=== PATIENT | female | born 1935 | race Caucasian/White ===

== ENCOUNTER 2016-10-24 09:57 | Emergency (ER) | payer MEDICARE, BC | END 2016-10-24 12:10 | disposition home or self-care (01) | LOC: D.ER 09:57 | DX: M25.551 Pain in right hip (principal); M54.5 Low back pain; Z91.81 History of falling; H40.9 Unspecified glaucoma; F41.9 Anxiety disorder, unspecified; I10 Essential (primary) hypertension ==

== ENCOUNTER → 2018-10-05 12:03 | Outpatient (CLI) | payer MEDICARE, BC | END | disposition home or self-care (01) | LOC: D.MRI 12:03 | DX: R42 Dizziness and giddiness (principal) ==

== ENCOUNTER 2018-12-23 12:51 | Outpatient (CLI) | payer MEDICARE, BC ==
[~2018-12-23] VITALS: Ht 167.6 cm; Wt 58.0 kg
--- NOTE | ~2018-12-23 | HEMODYNAMI ---
PATIENT:SULEMA CONRAD MEDICAL RECORD: [id number] : 35 LOCATION:[facility].212 ADMISSION DATE: 12/23/18 Generatedon:12/24/20188:55 Patient name: SULEMA CONRAD Patient #: [id number] SSN: : 1935 Date of study: 12/24/2018 Page: Of Hemodynamic Procedure Report Patient Data Patient Demographics Procedure consent was obtained First Name: SULEMA Gender: Female Last Name: [place] : 1935 Patient #: [id number] Age: 83 year(s) Race: Unknown Additional ID: [id number] Contact details [address]: [address] [place] [address] State: [place] City: [place] Zip code: [address] Admission Admission Data Admission Date: 12/23/2018 Admission Time: 12:51 Room #: [facility] Procedure Procedure Types Cath Procedure Diagnostic Procedure LHC Coronaries only Cardioversion External Procedure Description Procedure Date Procedure Date: 12/24/2018 Procedure Start Time: 8:36 Procedure End Time: 8:48 Procedure Staff Name Function Marcelo Forbes MD Performing Physician Grady Duran RT Monitor Delicia Mooney RT Scrub Andi Ramsey RN Nurse Procedure Data Cath Procedure Fluoroscopy Diagnostic fluoroscopy Total fluoroscopy Time: 2.1 time: 2.1 min min Diagnostic fluoroscopy Total fluoroscopy dose: 253 dose: 253 mGy mGy Contrast Material Contrast Material Type Amount (ml) Isovue 300 23 Entry Location Entry Primary Successful Side Size Upsize Upsize Entry Closure Succes sful Closure Location (Fr) 1 (Fr) 2 (Fr) Remarks Device Remarks Femoral Right 5 Fr Exoseal artery Estimated blood loss: 10 ml Diagnostic catheters Device Type Used For End Catheter Placement MULTIPACK Pigtail 5 Fr Procedure catheter MULTIPACK JL 4.0 5Fr Procedure catheter DIAGNOSTIC JL 6 5Fr Procedure catheter ([id number]) DIAGNOSTIC AR2 MOD 5 Fr Procedure catheter ([id number]) Procedure Complications No complications Procedure Medications Medication Administration Route Dosage Oxygen etCO2 Nasal cannula 2 l/min Heparin Flush Bag added to field 2 bags (1000units/500ml NS) 0.9% NaCl I.V. 100 ml/hr Lidocaine 2% added to field 20 Fentanyl I.V. 50 mcg Versed I.V. 1 mg Fentanyl I.V. 50 mcg Versed I.V. 1 mg Hemodynamics Rest Heart Rate: 82 (bpm) Snapshots Pre Cath Intra NCS Post Cath Vital Signs Time Heart Resp SPO2 etCO2 NIBP Rhythm Pain Sedation Rate (ipm) (%) (mmHg) (mmHg) Status Level (bpm) 8:31:13 83 18 98 17.2 118/61(93) NSR 0 (11) 10(A) , No pain 8:35:18 85 16 100 10.4 113/58(76) NSR 0 (11) 10(A) , No pain 8:39:20 90 17 97 0 98/62(80) NSR 0 (11) 9(A) , No pain 8:43:18 78 17 97 0 115/64(95) NSR 0 (11) 9(A) , No pain 8:48:17 72 16 86 0 128/60(98) NSR 0 (11) 9(A) , No pain Medications Time Medication Route Dose Verified Delivered Reason Notes Effe ctiveness by by 8:32:57 Oxygen etCO2 2 Marcelo Andi Per Nasal l/min Andrei Ramsey RN physician cannula 8:33:05 Heparin Flush added 2 Marcelo Andi used for Bag to bags Andrei Ramsey RN procedure (1000units/500ml field NS) 8:33:13 0.9% NaCl I.V. 100 Marcelo Andi Per ml/hr Andrei Ramsey RN physician 8:33:21 Lidocaine 2% added 20ml Marcelo Andi for local to vial Andrei Ramsey RN anesthetic field 8:35:18 Fentanyl I.V. 50 Marcelo Escamilla for mcg Andrei Ramsey RN sedation 8:35:24 Versed I.V. 1 mg Marcelo Escamilla for Andrei Ramsey RN sedation 8:39:42 Fentanyl I.V. 50 Marcelo Arredondoy for mcg Andrei Ramsey RN sedation 8:39:46 Versed I.V. 1 mg Marcelo Escamilla for Andrei Ramsey RN sedation Procedure Log Time Note 7:46:44 Signed procedure consent form obtained from patient. 7:46:45 Diagnostic Cath status Elective 7:46:46 Time tracking: Regular hours (M-F 7:00 - 5:00) 7:46:49 Plan of Care:Hemodynamics will remain stable., Cardiac rhythm will remain stable., Comfort level will be maintained., Respiratory function will remain adequate., Patient/ family verbilizes understanding of procedure., Procedure tolerated without complication., Recovers from procedure without complications.. 8:07:09 Grady SHAHID(R) sent for patient. Start room use. 8:10:26 Procedure type changed to Cath procedure, Diagnostic procedure, LHC, Coronaries only, Cardioversion External 8:17:05 Patient received from Med II to CCL 2 Alert and oriented. Tansferred to table in Supine position. 8:17:06 Warm blankets applied, and shilpa hugger turned on for patient comfort. 8:17:07 Correct patient and procedure confirmed by team. 8:17:08 ECG and BP/O2 sat monitors applied to patient. 8:30:02 Vital chart was started 8:31:18 Baseline sample Acquired. 8:31:35 Rhythm: atrial fibrillation 8:32:10 Full Disclosure recording started 8:32:19 H&P Date Dictated: 12/23/2018 Within 30 days and on chart., H&P Addendum completed by physician on day of procedure. (MUST COMPLETE FOR ALL OUTPATIENTS). 8:32:20 Pre-procedure instructions explained to patient. 8:32:21 Pre-op teaching completed and patient verbalized understanding. 8:32:22 Family in patients room. 8:32:24 Patient NPO since Midnight. 8:32:25 Is the patient allergic to Iodine/contrast media? No. 8:32:27 Is patient on blood thinner?Yes 8:32:33 ACC The patient was administered the following blood thiners within the last 24 hours: ACCPlavix 8:32:52 Patient diabetic? No. 8:32:55 Previous problem with sedation/anesthesia? No ? 8:32:56 Snore? No 8:32:57 Oxygen 2 l/min etCO2 Nasal cannula was administered by Andi Ramsey RN; Per physician; 8:32:57 Sleep apnea? No 8:32:58 Deviated septum? No 8:32:58 Opens mouth fully? Yes 8:32:59 Sticks out tongue? Yes 8:33:00 Airway obstruction? No ? 8:33:03 Dentures? Yes out 8:33:05 Heparin Flush Bag (1000units/500ml NS) 2 bags added to field was administered by Andi Ramsey RN; used for procedure; 8:33:06 Pre procedure: right dorsailis pedis pulse 1+ Palpable, but thready & weak; easily obliterated 8:33:13 0.9% NaCl 100 ml/hr I.V. was administered by Andi Ramsey RN; Per physician; 8:33:18 RADIAL TOO SMALL 8:33:21 Lidocaine 2% 20ml vial added to field was administered by Andi Ramsey RN; for local anesthetic; 8:33:21 Patient pain scale 0/10 ?. 8:33:24 IV patent on arrival in right forearm with 0.9% NaCl at KVO. 8:33:26 Lab results completed and on chart. 8:33:29 Right groin area was prepped with chlora-prep and draped in sterile fashion 8:33:30 Alarms reviewed by R. N. 8:33:31 Sharps counted by scrub and verified by R.N. 8:33:36 Use device set Femoral Dx 8:33:44 Tegaderm 4 x 4 ([id number]) opened to sterile field. 8:33:46 ACIST Hand Control (25456) opened to sterile field. 8:33:46 ACIST Manifold (92855) opened to sterile field. 8:33:47 ACIST Syringe (00672) opened to sterile field. 8:33:48 Bag Decanter (2002S) opened to sterile field. 8:33:48 Medline Cath Pack ([id number]) opened to sterile field. 8:33:49 DIAGNOSTIC WIRE .035 260cm J wire (208684) opened to sterile field. 8:33:50 DIAGNOSTIC Multipack 5Fr catheter set ([id number]) opened to sterile field. 8:33:51 SHEATH 5FR Rittman (JIN157) opened to sterile field. 8:33:52 Quick Combo opened to sterile field. 8:33:56 Quick combo pads placed on patients chest and back. 8:34:00 --------ALL STOP TIME OUT------ 8:34:01 Final Timeout: patient, procedure, and site verified with staff and physician. All members of the team are in agreement. 8:34:02 Right groin site verified by team. 8:34:05 Maximum allowable Isovue 300 dose 300ml. Physician notified. (300ml for normal creatinines. For patients with creatinine of 1.7 or higher multiply weight(kg) x 5 divided by creatinine.) 8:34:13 Fire Safety Assessment: A--An alcohol-based skin anteseptic being used preoperatively., C--Open oxygen or nitrous oxide is being used., D--An ESU, laser, or fiber-optic light is being used. 8:34:16 Physical assessment completed. ASA score P 2 - A patient with mild systemic disease as per Marcelo Forbes MD. 8:34:19 Sedation plan: IV Moderate Sedation Medication:Versed, Fentanyl 8:35:18 Fentanyl 50 mcg I.V. was administered by Andi Ramsey RN; for sedation; 8:35:24 Versed 1 mg I.V. was administered by Andi Ramsey RN; for sedation; 8:36:54 Procedure started. 8:36:57 Local anesthetic to right femoral artery with Lidocaine 2% by Marcelo Forbes MD.INITIAL ACCESS ONLY 8:37:21 A 5 Fr sheath was inserted into the Right Femoral artery 8:38:28 Zero performed for pressure channel P1 8:38:31 Zero performed for pressure channel P1 8:38:33 Zero performed for pressure channel P1 8:38:49 A MULTIPACK Pigtail 5 Fr catheter was advanced over the wire and used for Procedure. 8:39:42 Fentanyl 50 mcg I.V. was administered by Andi Ramsey RN; for sedation; 8:39:46 Versed 1 mg I.V. was administered by Andi Ramsey RN; for sedation; 8:39:54 Unable to cross valve. 8:40:01 Catheter removed. 8:40:11 A MULTIPACK JL 4.0 5Fr catheter was advanced over the wire and used for Procedure. 8:40:45 Catheter removed. unable to cannulate vessel. 8:40:57 A DIAGNOSTIC JL 6 5Fr catheter ([id number]) was advanced over the wire and used for Procedure. 8:42:03 LCA angiography performed. 8:42:12 Catheter removed. 8:42:49 A DIAGNOSTIC AR2 MOD 5 Fr catheter ([id number]) was advanced over the wire and used for Procedure. 8:43:00 RCA angiography performed. 8:43:02 Catheter removed. 8:45:22 Defibrillator synced and charged to 275 Joules. 8:45:24 Shock delivered. 8:45:30 Patient cardioverted to sinus rhythm . 8:45:49 Sheath removed intact; hemostasis achieved with Exoseal to the Right Femoral artery. 8:45:52 EXOSEAL 5Fr (EX500) opened to sterile field. 8:45:55 Procedure ended.(Physican Out) 8:46:22 Fluoroscopy time 02.10 minutes. 8:46:26 Fluoroscopy dose: 253 mGy 8:46:26 Flurop Dose total: 253 8:46:29 Contrast amount:Isovue 300 23ml. 8:46:30 Sharps counted by scrub and verified by R.N. 8:46:31 Insertion/operative site no bleeding no hematoma. 8:46:33 Post-op/insertion site Right Femoral artery dressed using a 4 x 4 and Tegaderm. 8:46:35 Post Procedure Pulses reassessed and unchanged 8:46:37 Post-procedure physical assessment completed. ASA score P 2 - A patient with mild systemic disease as per Marcelo Forbes MD. 8:46:40 Post procedure rhythm: sinus rhythm 8:46:42 Estimated blood loss: 10 ml 8:46:45 Post procedure instruction explained to patient.Patient verbalizes understanding. 8:46:45 Patient needs reinforcement of post procedure teaching. 8:46:53 Procedure and supply charges have been captured, reviewed, submitted and are correct. 8:46:55 Procedure Complication : No complications 8:47:15 Vital chart was stopped 8:47:15 See physician's report for complete and final results. 8:48:07 Report given to Pre/Post Procedure Room. 8:48:10 Patient transfered to Pre/Post Procedure Room with Stretcher. 8:48:12 Procedure ended. 8:48:12 Full Disclosure recording stopped 8:53:41 End room use (Document Last) Device Usage Item Name Manufacture Quantity Catalog Hospital Part Current Minima l Lot# / Number Charge Number Stock Stock Serial# Code Tegaderm 4 3M 1 1626W [id number] [id number] 201111 5 x 4 (1626W) ACIST Hand Acist 1 87366 368600 293362 883537 5 Control Medical (91429) Systems Inc ACIST Acist 1 98792 133075 398575 801331 5 Manifold Medical (95723) Systems Inc ACIST Acist 1 17336 339116 091366 078208 20 Syringe Medical (06657) Systems Inc Bag Microtek 1 2001S 547484 72212 155554 5 Decanter Medical Inc. (2001S) Medline Medline 1 [id number] 178740 37434 748975 5 Cath Pack ([id number]) DIAGNOSTIC St Kaden 1 027241 238488 847581 901739 30 WIRE .035 260cm J wire (314406) DIAGNOSTIC Cardinal 1 LC2451 658279 53604 625884 30 Multipack Health 5Fr catheter set (QB4485) SHEATH 5FR Terumo 1 AAB988 675067 345195 041082 5 Rittman (RZK439) Eyeonplay 1 88603-705481 876206 928954 057000 5 MULTIPACK Cardinal 1 398254 5 Pigtail 5 Health Fr catheter MULTIPACK Cardinal 1 454381 5 JL 4.0 5Fr Health catheter DIAGNOSTIC Cardinal 1 201503S 308826 735414 035068 5 JL 6 5Fr Health catheter (104836R) DIAGNOSTIC Cardinal 1 [id number] 956110 042055 689549 20 AR2 MOD 5 Health Fr catheter (807925B) EXOSEAL 5Fr Cardinal 1 EX500 121536 044783 586725 10 (EX500) Health Signature Audit [place] Stage Time Signature Unsigned Intra-Procedure 12/24/2018 Grady Duran 8:55:31 AM RT(R) Signatures Monitor : Grady Duran RT Signature : Date : Time : [facility] [address] [place] [address]
[2018-12-23] MEDS ORDERED: NORVASC5 MG PO (13:09)
[2018-12-23] MEDS ORDERED: HYDROCHLOROTHIA25 MG PO (13:11)
[2018-12-23] MEDS ORDERED: TENORMIN25 MG PO (13:11)
[2018-12-23 13:35] LABS: BASOPHILS 0.3 % (0-2); EOSINOPHILS 1.2 % (0-7); HEMATOCRIT 39.3 % (36.0-48.0); HEMOGLOBIN 13.5 g/dL (12-16); IMMATURE GRANULOCYTES 0.3 % (0-5); LYMPHOCYTES 20.9 % (15-50); MCH 30.1 pg (26.0-34.0); MCHC 34.4 g/dL (31.0-37.0); MCV 87.7 fL (80.0-100.0); MEAN PLATELET VOLUME 9.9 fL (7.4-10.4); MONOCYTES 11.9 % (2-11); NEUTROPHILS 65.4 % (40-80); PLATELET COUNT 195 10x3/uL (130-400); RBC 4.48 10x6/uL (4.00-5.40); RDW 13.4 % (11.5-14.5); WBC 11.9 10x3/uL (4.8-10.8)
[2018-12-23 13:51] LABS: ALBUMIN 3.6 g/dL (3.4-5.0); ALKALINE PHOSPHATASE 62 U/L (46-116); ALT (SGPT) 19 U/L (10-68); BILIRUBIN - TOTAL 0.57 mg/dL (0.2-1.3); CALC OSMOLALITY 285 mosm/kg (275-300); CALCIUM 8.9 mg/dL (8.5-10.1); CARBON DIOXIDE 26.4 mmol/L (21.0-32.0); CHLORIDE - SERUM 104 mmol/L (98-107); CREATININE - SERUM 1.1 mg/dL (0.6-1.3); GLUCOSE 157 mg/dL (74-106); POTASSIUM - SERUM 3.2 mmol/L (3.5-5.1); PROTEIN - SERUM 7.1 g/dL (6.4-8.2); SODIUM 140 mmol/L (136-145); UREA NITROGEN 23 mg/dL (7-18); eGFR NON AFRICAN AMERICAN 50 mL/min (90-120)
[2018-12-23 14:06] LABS: CKMB 3.3 U/L (0.0-3.6); CREATINE KINASE 115 UL (21-215); PRO BNP 9115 pg/mL (0-450)
[2018-12-23 16:40] VITALS: BP 129/81; Ht 167.6 cm; Wt 58.0 kg
--- NOTE | 2018-12-23 19:26 | NUR ---
PT RESTING IN BED. AAO, DENIES ANY NEEDS. ORIENTED TO USE OF PHONE IN ROOM. PLACED NAME AND DATE ON BOARD. PT DENIES ANY NEEDS. NO S/S OF DISTRESS. PT WILL CALL FOR ASSIST WHEN NEEDED. WILL CPOC
[2018-12-23 20:00] VITALS: BP 116/70
--- NOTE | 2018-12-23 21:16 | NUR ---
EDUCATION GIVEN ON BETAPACE AND PRAVASTATIN. PT VERBALIZED UNDERSTANDING. WILL PRINT A HAND OUT FOR PT. PT VERBALIZED UNDERSTANDING OF HEART CATH TOMORROW AND UNDERSTANDING OF NPO AFTER MIDNIGHT.. PT WILL CALL FOR ASSIST WILL CPOC
--- NOTE | 2018-12-23 21:32 | NUR ---
PRINTED EDUCATION ON AFIB BETAPACE AND PRAVASTATIN. WENT OVER CONSENTS WITH PT, PT VERBALIZED UNDERSTANDING. ANSWERED QUESTIONS AND CONCERNS. PT DENIES ANY OTHER QUESTIONS OR CONCERNS AT THIS TIME. GAVE PT SLIPPER SOCKS AND ASSISTED INTO A GOWN FOR BED. PT SIGNED CONSENTS. DENIES ANY OTHER NEEDS. NO S/S OF DISTRESS. WILL CPOC
[2018-12-24] VITALS: BP 99/63
[2018-12-24 04:00] VITALS: BP 106/84
--- NOTE | 2018-12-24 07:30 | NUR ---
ASSESSMENT COMPLETED. ALERT AND ORIENTED. TELEMERTY SHOWS CAF. RIGHT HAND SL. DENIES ANY NEEDS. NPO FOR CATH.
--- NOTE | 2018-12-24 09:23 | NUR ---
PT SLEEPY, AWAKENS EASILY TO VERBAL. DENIES ANY C/O. DRESSING IS CDI TO RIGHT GROIN, AREA IS SOFT AND NONTENDER. PEDAL PULSES PALPABLE. HOB IS FLAT, VSS. NSR, RATE 74. SON AT BEDSIDE.
[2018-12-24] MEDS ORDERED: XARELTO20 MG PO (09:42)
[2018-12-24] MEDS ORDERED: BETAPACE 80 MG80 MG PO (09:42)
--- NOTE | 2018-12-24 10:00 | NUR ---
PT ALERT, DENIES ANY C/O. VSS, NSR, RATE 73. RESP WITH EASE ON ROOM AIR. DRESSING IS CDI TO RIGHT GROIN, PEDAL PULSES PALPABLE. SON AT BEDSIDE, HOB IS FLAT.
--- NOTE | 2018-12-24 10:06 | NUR ---
SENT TO CATH RECOVER AFTER CATH
--- NOTE | 2018-12-24 10:14 | NUR ---
HOB ELEVATED 30 DEGREES, SANDWICH AND PO FLUIDS SERVED. DRESSING REMAINS CDI, PEDAL PULSES PALPABLE. NSR, DENIES ANY C/O CHEST DISCOMFORT. RESP WITH EASE ON ROOM AIR. SON AT BEDSIDE.
--- NOTE | 2018-12-24 10:26 | NUR ---
HOB FULLY ELEVATED, DRESSING REMAINS CDI. PEDAL PULSES PALPABLE. DR PEREZ HAS ROUNDED. VSS, SON AT BEDSIDE. PT ANDREW SANDWICH AND PO FLUIDS WITH NO C/O NAUSEA.
--- NOTE | 2018-12-24 10:48 | NUR ---
DRESSING REMAINS CDI TO RIGHT GROIN, NO BLEEDING OR HEMATOMA NOTED. PEDAL PULSES PALPABLE. VSS. NSR, DENIES ANY C/O CHEST PAIN. HAS ANDREW SANDWICH AND PO FLUIDS. DC INSTRUCTIONS REVIEWED WITH PT AND SON, WHO VERBALIZE UNDERSTANDING. XARELTO AND SOTOLOL PRESCRIPTIONS AND MEDCOUNSELOR SHEETS TO PT. PIV DC'D WITH CATH INTACT.
--- NOTE | 2018-12-24 11:03 | NUR ---
ASSISTED PT WITH DRESSING FOR DC TO HOME. DRESSING REMAINS CDI TO RIGHT GROIN WITH PEDAL PULSES PALPABLE. PT DENIES ANY C/O. AWAITING PT'S RIDE TO ARRIVE FOR DC.
--- NOTE | 2018-12-24 11:26 | NUR ---
1125 PT ESCORTED TO [facility] VIA WC BY NURSE WITH DAUGHTER IN LAW DRIVING HER HOME. PT IS ALERT AND DENIES ANY C/O. PT HAS ALL PERSONAL BELONINGS AND DC INSTRUCTIONS AT TIME OF DISCHARGE.
--- NOTE | 2018-12-24 15:13 | OP ---
PATIENT NAME: SULEMA CONRAD MEDICAL RECORD: [id number] :35 LOCATION:D.CAT ADMISSION DATE: SURGEON: CALVIN PEREZ MD DATE OF OPERATION: 12/24/2018 PROCEDURES: 1. Left heart catheterization. 2. Selective coronary angiography. 3. Cardioversion. INDICATION: Angina, AFib, coronary artery disease, abnormal ECG. DESCRIPTION OF PROCEDURE: After informed consent was obtained and after a detailed description of risks, benefits as well as alternative therapies, the patient elected to proceed with angiogram and cardioversion. The right femoral area was prepped and draped in normal sterile fashion. Right femoral artery was cannulated via modified Seldinger technique with placement of 5-Swazi sheath. All catheters exchanged through this sheath. FINDINGS: The left ventriculogram cannot be performed secondary to inability to cross the aortic valve. Echocardiogram will be obtained. SELECTIVE CORONARY ANGIOGRAPHY: 1. Left main is with no significant angiographic disease. 2. Left anterior descending has moderate irregularities, but no flow-limiting stenosis. 3. The left circumflex has mild irregularities, but no flow-limiting stenosis. 4. Right coronary artery has moderate irregularities, but no flow-limiting stenosis. DC CARDIOVERSION: She received 1 shock at 275 joules restoring sinus rhythm. OVERALL IMPRESSION: No significant coronary artery disease is present. Symptomatology was secondary to the atrial fibrillation. Center medical management and treatment of the atrial fibrillation after cardioversion. TRANSINT:[id number] Voice Confirmation ID: [id number] DOCUMENT ID: [id number] CALVIN PEREZ MD at 1513 CC: [id number] DICTATION DATE: 12/24/18 0851 ROTARY FURNACE OPERATOR: 12/24/18 1201 DEP CLI 12/24/18 [facility] [address] [place] [address]
--- NOTE | 2018-12-24 15:13 | HP ---
PATIENT: SULEMA MOON MEDICAL RECORD: [id number] ACCOUNT: [id number] LOCATION:[facility] : 35 ADMISSION DATE: 12/23/18 PCP: AMPARO ROCKWELL MD HISTORY AND PHYSICAL EXAMINATION DIAGNOSES: 1. Elevated troponin, non-Q-wave myocardial infarction. 2. Angina. 3. New onset atrial fibrillation. 4. Hypertension. 5. Hyperlipidemia. HISTORY OF PRESENT ILLNESS: Mrs. Moon has no previous cardiac history, only history of hypertension. Since yesterday, she has felt his shortness of breath and chest pressure. She comes in with atrial fibrillation, heart rates in the 110-120 range. Ischemic changes on her EKG and troponin is mildly elevated. She is pain free now after a dose of sotalol. Her heart rates in the 90s, still atrial fibrillation. She has received Plavix load as well as 1 dose of Lovenox. PHYSICAL EXAMINATION: GENERAL APPEARANCE: Well-nourished, well-developed, appears stated age. Level of distress, comfortable. PSYCHIATRIC: Mental status, alert, normal affect. Orientation, oriented to time, place and person. EYES: Lids and conjunctiva, noninjected. No discharge, no pallor. ENT: Lips, teeth, gums, normal dentition. Oropharynx, no cyanosis, no pallor. NECK: Carotid arteries, bilateral normal upstroke, no bruits, no thrills. JUGULAR VEINS: No jugular venous pressure or distention. CERVICAL LYMPH NODES: Nontender, nonenlarged. THYROID: Not enlarged. Nontender. No nodules. LUNGS: Respiratory effort, unlabored. CHEST: Normal curvature. No thoracic deformity. No chest wall tenderness. Percussion, resonant. Auscultation, clear. No wheezes, no rales, no rhonchi. CARDIOVASCULAR: Precordial exam, nondisplaced. No heaves or pericardial thrills. Rate and rhythm, regular. Heart sounds, normal S1, normal S2. No S3, no gallop, no rub. Systolic murmur, not heard. Diastolic murmur, not heard. EXTREMITIES: No cyanosis, no edema. Peripheral pulses, full and equal in all extremities, except as noted. No bruits appreciated. ABDOMEN: Soft, nondistended. Normal aorta. No bruit. Nontender. No masses. Liver, nontender, no hepatomegaly. Spleen, nontender, no splenomegaly. MUSCULOSKELETAL: No joint tenderness. No joint swelling. No erythema. NEUROLOGICAL: Normal gait, normal strength, normal tone. SKIN: Warm and dry. OVERALL IMPRESSION: Atrial fibrillation, ischemic changes on her EKG, anginal symptomatology. No doubt she has hemodynamically significant coronary artery disease. We will proceed with coronary angiography, cardioversion in the a.m. TRANSINT:[id number] Voice Confirmation ID: [id number] DOCUMENT ID: [id number] HISTORY AND PHYSICAL [id number] SULEMA MOON JEFFREY MD at 1513 CC: [id number] DICTATION DATE: 12/23/18 1543 SERVICE LINE LAYER: 12/23/18 1558 [facility] CLI 12/24/18 [id number] [place] [address]
--- NOTE | 2018-12-29 14:39 | DS ---
PATIENT:SULEMA MOON :35 MEDICAL RECORD: [id number] DISCHARGE SUMMARY ADMISSION DATE: 12/23/18 DISCHARGE DATE: 12/24/18 DIAGNOSES: 1. Atrial fibrillation. 2. DC cardioversion. 3. Angina, but normal cardiac catheterization. 4. Hypertension. 5. Hyperlipidemia. HOSPITAL COURSE: Mrs. Moon presents with anginal symptomatology and new-onset atrial fibrillation. She underwent DC cardioversion as well as cardiac catheterization. Cardiac catheterization revealed no significant coronary artery disease. DC cardioversion was successful. She was converted to sinus rhythm and discharged home with the addition of sotalol and Xarelto to her medical regimen. She will follow up with [facility] in one month. TRANSINT:[id number] Voice Confirmation ID: [id number] DOCUMENT ID: [id number] CALVIN PEREZ MD at 1439 CC: [id number] DICTATION DATE: 12/24/18 0852 FOOD MIXER REPAIRER: 12/25/18 0051 DEP CLI 12/24/18 [place] [id number] [place] [address]
--- NOTE | 2018-12-29 14:39 | EC ---
PATIENT:SULEMA CONRAD DATE OF SERVICE: 12/23/18 SEX: F MEDICAL RECORD: [id number] DATE OF : [birth year] LOCATION:D.CAT AGE OF PATIENT: 83 ADMISSION DATE: 12/23/18 REFERRING PHYSICIAN: INTERPRETING PHYSICIAN: CALVIN FORBES MD ECHOCARDIOGRAM REPORT ECHO CHARGES 4 ECHO COMPLETE Date: 12/24/18 CLINICAL DIAGNOSIS: S/P CATH ECHOCARDIOGRAPHIC MEASUREMENTS (adult normal given) AC root (d.<3.7cm) 2.7 cm LV Septum d (<1.2 cm> 1.5 cm Valve Excursion 0.6 cm LV Septum (systole) 2.2 cm Left Atria (s.<4.0cm> 3.7 cm LVPW d(<1.2cm) 1.4 cm RV (d.<2.3cm) 2.4 cm LVPW (sytole) 2.0 cm LV diastole(<5.6CM) 5.2 cm MV E-F(>70mm/sec) cm LV systole 3.1 cm LVOT Diameter 1.9 cm MV exc.(>10mm) cm Est.ejection fraction (50-75%) % DOPPLER: LVIT cm/sec A 94.0 cm/sec E 65.0 cm/sec LA cm/sec RVSP 49.0 mmHg LVOT 62.0 cm/sec AOP1/2T m/s Asc. Ao 421 cm/sec RVOT 47.0 cm/sec RA cm/sec PA 51.0 cm/sec AV Gradient Peak 71.0 mmHg AV Mean 46.0 mmHg AV Area 0.5 cm MV Gradient Peak 4.0 mmHg MV Mean 1.5 mmHg MV Area cm COMMENTS: Supervisor Fur Floor Worker: 1 GAYATRI OLIVEROSOE Pediatric Neuropsychologist: 1 Dr. Forbes TAPE# PACS Pericardial Effusion N DATE OF SERVICE: ECHOCARDIOGRAM FINDINGS: 1. Left ventricular chamber size is mildly dilated. Left ventricular systolic function is mildly reduced, overall ejection fraction 40% to 45%. 2. Left atrium is within normal limits at 3.7 cm. Right atrium and right ventricular chamber sizes are mildly dilated. 3. 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 The valve area calculates to 0.5 cm-squared and has a gradient of 71-mm across the valve. The remaining valvular structures have normal structure and motion. 4. Doppler interrogation elsewise reveals trace mitral regurgitation, moderate tricuspid regurgitation, no other valvular insufficiency or stenosis. Pulmonary systolic pressure is mildly elevated, estimated at 49 mmHg. 5. No evidence of pericardial effusion or left ventricular thrombus. TRANSINT:[id number] Voice Confirmation ID: [id number] DOCUMENT ID: [id number] CALVIN FORBES MD at 1439 CC: [id number] DICTATION DATE: 12/24/18 1301 TAPER MACHINE: 12/24/18 1343 DEP CLI 12/24/18 [place] [id number] [place] [address]
== END 2018-12-24 11:25 | disposition home or self-care (01) ==
LOC: D.M2 12:51 → D.ER 12:51 → D.CATH 12:51 → EDSTATUS 15:18 → D.M2 15:47 → D.CLR 12-24 09:08 → D.CATH 12-24 11:25
PROVIDERS: Family Medicine; ATTEND Internal Medicine Interventional Cardiology
DX: I48.91 Unspecified atrial fibrillation (principal); I10 Essential (primary) hypertension; E78.5 Hyperlipidemia, unspecified; Z01.812 Encounter for preprocedural laboratory examination

== ENCOUNTER 2018-12-28 14:15 | Inpatient (IN) | payer MEDICARE, BC ==
[2018-12-28] VITALS (15 sets, daily range): BP systolic 80–125; BP diastolic 40–77; BMI 18.6
[~2018-12-28] VITALS: Ht 167.6 cm; Wt 62.6 kg
[~2018-12-28 14:15] MED LIST: BETAPACE 80 MG80 MG PO; HYDROCHLOROTHIA25 MG PO; NORVASC5 MG PO; TENORMIN25 MG PO; XARELTO20 MG PO
[2018-12-28 16:29] LABS: BASOPHILS 0.5 % (0-2); EOSINOPHILS 0.7 % (0-7); HEMATOCRIT 27.3 % (36.0-48.0); IMMATURE GRANULOCYTES 0.4 % (0-5); LYMPHOCYTES 11.6 % (15-50); MCH 29.5 pg (26.0-34.0); MCV 89.5 fL (80.0-100.0); MEAN PLATELET VOLUME 9.7 fL (7.4-10.4); MONOCYTES 4.7 % (2-11); NEUTROPHILS 82.1 % (40-80); PLATELET COUNT 233 10x3/uL (130-400); RBC 3.05 10x6/uL (4.00-5.40); RDW 13.7 % (11.5-14.5); WBC 10.9 10x3/uL (4.8-10.8)
[2018-12-28 16:45] LABS: ANION GAP 13.7 mmol/L (8-16); CALCIUM 8.5 mg/dL (8.5-10.1); CARBON DIOXIDE 24.2 mmol/L (21.0-32.0); CREATININE - SERUM 1.2 mg/dL (0.6-1.3); POTASSIUM - SERUM 3.9 mmol/L (3.5-5.1)
[2018-12-28 18:29] LABS: INR 1.96 (0.85-1.17); PROTIME 21.6 SECONDS (11.6-15.0)
[2018-12-28 20:21] LABS: INR 1.69 (0.85-1.17); PROTIME 19.3 SECONDS (11.6-15.0)
--- NOTE | 2018-12-28 22:38 | MORECARE ---
CASE MANAGEMENT DISCHARGE SUMMARY PATIENT: SULEMA CONRAD UNIT: [id number] ADM DATE: 12/28/18 AGE: 83 : 35 SEX: F [facility] AUTHOR: DUNCAN SAHNI PHYSICIAN: REFERRING PHYSICIAN: CALVIN PEREZ MD DATE OF SERVICE: 12/28/18 Discharge Plan Patient Name: SULEMA CONRAD Facility: [facility]:[place] : 1935 Planned Disposition: Home Anticipated Discharge Date: Discharge Date: Expected LOS: Initial Reviewer: [email or web address] Initial Review Date: 12/28/2018 Generated: 12/28/18 11:38 pm Patient Name: SULEMA CONRAD Page 51752 at 2238 All edits/amendments must be made on the electronic document DICTATION DATE: 12/28/182237 FOCUSER: MICK 12/28/182237 RPT#: [id number] DC DATE: STATUS: ADM IN [facility] [address] [place] [address] END OF REPORT
--- NOTE | 2018-12-28 22:45 | MORECARE ---
CASE MANAGEMENT DISCHARGE SUMMARY PATIENT: SULEMA CONRAD UNIT: [id number] ADM DATE: 12/28/18 AGE: 83 : 35 SEX: F [facility] AUTHOR: DUNCAN SAHNI PHYSICIAN: REFERRING PHYSICIAN: CALVIN PEREZ MD DATE OF SERVICE: 12/28/18 Discharge Plan Patient Name: SULEMA CONRAD [facility] [facility] 1935 Planned Disposition: Home Anticipated Discharge Date: Discharge Date: Expected LOS: Initial Reviewer: [email or web address] Initial Review Date: 12/28/2018 Generated: 12/28/18 11:44 pm DCPIA - Discharge Planning Initial Assessment Updated by [email or web address]: Sammie Perez on 12/28/18 10:40 pm * Is the patient Alert and Oriented? No * How many steps to enter\exit or inside your home? * PCP UNKNOWN * Pharmacy [facility] * Preadmission Environment Home Alone * ADLs Independent * Equipment Cane * List name and contact numbers for known caregivers / representatives who currently or will assist patient after discharge: MSIBAH CONRAD [facility]- [phone] * Verbal permission to speak to the caregivers and representatives has been obtained from the patient. N/A * Community resources currently utilized None * Additional services required to return to the preadmission environment? No * Can the patient safely return to the preadmission environment? Yes * Has this patient been hospitalized within the prior 30 days at any hospital? No Last DP export: 12/28/18 9:38 p Patient Name: SULEMA CONRAD Page [phone] at 2245 All edits/amendments must be made on the electronic document DICTATION DATE: 12/28/182243 BASKET PATCHER: MICK 12/28/182243 RPT#: [id number] DC DATE: STATUS: ADM IN [facility] [address] [place] [address] END OF REPORT
--- NOTE | 2018-12-28 22:52 | MORECARE ---
CASE MANAGEMENT DISCHARGE SUMMARY PATIENT: SULEMA CONRAD UNIT: [id number] ADM DATE: 12/28/18 AGE: 83 : 35 SEX: F ROOM/BED: D.[facility] AUTHOR: KAITLYN,DOC PHYSICIAN: REFERRING PHYSICIAN: CALVIN PEREZ MD DATE OF SERVICE: 12/28/18 Discharge Plan Patient Name: SULEMA CONRAD Facility: [facility]:[place] : 1935 Planned Disposition: Home Anticipated Discharge Date: Discharge Date: Expected LOS: Initial Reviewer: [email or web address] Initial Review Date: 12/28/2018 Generated: 12/28/18 11:51 pm Comments DCP- Discharge Planning Updated by [email or web address]: Sammie Perez on 12/28/18 9:[address] Patient Name: SULEMA CONRAD Admission Status: Elective Accout number: [id number] Admission Date: 12-28-2018 : 1935 Admission Diagnosis: Attending: GENTRY PEREZ Current LOS: 1 Anticipated DC Date: Planned Disposition: Home Primary Insurance: MEDICARE A & B Discharge Planning Comments: CM met with patient's son (Shayan) and spouse at bedside after explaining CM role and obtaining verbal consent. Patient is recovering post operatively. Patient lives at home alone and plans to return there upon discharge. CM discussed availability / needs of home health and medical equipment. Family uncertain of what outcome / needs maybe at this time. Patient's son (Shayan) stated that his mother needs a knee brace to help her ambulate better at home. CM will continue to follow and assist as needed with discharge planning / needs. Customer Development Representative: Sammie Perez DCPIA - Discharge Planning Initial Assessment Updated by [email or web address]: Sammie Perez on 12/28/18 10:40 pm * Is the patient Alert and Oriented? No * How many steps to enter\exit or inside your home? * PCP UNKNOWN * Pharmacy [facility] * Preadmission Environment Home Alone * ADLs Independent * Equipment Cane * List name and contact numbers for known caregivers / representatives who currently or will assist patient after discharge: SHAYAN CONRAD - SON- [phone] * Verbal permission to speak to the caregivers and representatives has been obtained from the patient. N/A * Community resources currently utilized None * Additional services required to return to the preadmission environment? No * Can the patient safely return to the preadmission environment? Yes * Has this patient been hospitalized within the prior 30 days at any hospital? No Last DP export: 12/28/18 9:45 p Patient Name: SULEMA CONRAD Page 48100 at 2252 All edits/amendments must be made on the electronic document DICTATION DATE: 12/28/182250 ESCALATOR ATTENDANT: MICK 12/28/182250 RPT#: [id number] DC DATE: STATUS: ADM IN [facility] [address] [place] [address] END OF REPORT
[2018-12-29] VITALS (29 sets, daily range): BP systolic 96–121; BP diastolic 37–55; Ht 167.6 cm; Wt 62.6 kg
[2018-12-29 06:18] LABS: INR 1.44 (0.85-1.17)
[2018-12-29 06:27] LABS: ANION GAP 13.4 mmol/L (8-16); CALCIUM 7.6 mg/dL (8.5-10.1); CARBON DIOXIDE 25.6 mmol/L (21.0-32.0)
[2018-12-29 06:28] LABS: CREATININE - SERUM 0.8 mg/dL (0.6-1.3)
[2018-12-29 06:29] LABS: BASOPHILS 0.1 % (0-2); EOSINOPHILS 0.4 % (0-7); IMMATURE GRANULOCYTES 0.4 % (0-5); LYMPHOCYTES 12.7 % (15-50); MCH 30.3 pg (26.0-34.0); MCHC 34.6 g/dL (31.0-37.0); MEAN PLATELET VOLUME 9.4 fL (7.4-10.4); MONOCYTES 10.5 % (2-11); NEUTROPHILS 75.9 % (40-80); PLATELET COUNT 215 10x3/uL (130-400); RBC 2.08 10x6/uL (4.00-5.40); RDW 13.5 % (11.5-14.5)
--- NOTE | 2018-12-29 07:32 | OP ---
PATIENT NAME: SULEMA CONRAD MEDICAL RECORD: [id number] :[birth year] LOCATION:D.CVI D.CV01 ADMISSION DATE:12/28/18 SURGEON: LUIS MILAN MD DATE OF OPERATION: 12/28/2018 SURGEON: Luis Milan MD DRY KILN OPERATOR HELPER: Ed Aggarwal MD PROCEDURE PERFORMED: 1. Emergency repair of right femoral pseudoaneurysm and hemorrhage. 2. Evacuation of right femoral hematoma. PREOPERATIVE DIAGNOSIS: Right femoral pseudoaneurysm and hematoma. POSTOPERATIVE DIAGNOSIS: Right femoral pseudoaneurysm and hematoma. ANESTHESIA: General endotracheal anesthesia. ESTIMATED BLOOD LOSS: 100 cc acute plus 100 cc old blood with Cell Saver. TRANSFUSIONS: 1 packed red blood cell, 1 platelet, and 2 FFP. COMPLICATIONS: None. SPECIMENS: None. CONDITION: Stable. DISPOSITION: ICU. OPERATIVE FINDINGS: 1. Large clotted hematoma extending anteromedially on the thigh. 2. Relative high bifurcation with cannulation site in the anterior wall of the superficial femoral. No sign of closure device single primary repair and evacuation of hematoma. Drain placed. OPERATIVE INDICATION: Hypotension, femoral pseudoaneurysm, and anticoagulation. DESCRIPTION OF PROCEDURE: The patient brought over to the operating suite. General anesthesia obtained. The groin was prepped and draped. Incision was made in the groin crease, taken down to subcutaneous tissue. Large hematoma was encountered and evacuated. The femoral artery was identified and direct pressure was held. The artery was dissected out and a single [id number] Prolene suture was used for hemostasis. Thorough irrigation was undertaken. All bits of the clot and debris were removed. A second oversew of the arterial site was performed for safety. Then, antibiotic irrigation drain was placed. The wound was closed in 3 layers with skin clips. Anesthesia was reversed. The patient was taken to the floor in stable condition. TRANSINT:[id number] Voice Confirmation ID: [id number] DOCUMENT ID: [id number] OPERATIVE REPORT [id number] SULEMA CONRAD DANIEL W MD at 0732 CC: CALVIN PEREZ [id number] DICTATION DATE: 12/28/181823 COMPENSATION ADJUSTER: 12/28/181957 ADM IN [place] [facility] [id number] [place] [address]
[2018-12-29 07:42] LABS: HEMOGLOBIN 6.3 g/dL (12-16); WBC 7.8 10x3/uL (4.8-10.8)
[2018-12-29 07:43] LABS: HEMATOCRIT 18.2 % (36.0-48.0); MCV 87.5 fL (80.0-100.0)
[2018-12-29 13:38] LABS: HEMATOCRIT 24.7 % (36.0-48.0); HEMOGLOBIN 8.6 g/dL (12-16)
[2018-12-30] VITALS (22 sets, daily range): BP systolic 85–140; BP diastolic 36–89
[2018-12-30 08:49] LABS: BASOPHILS 0.3 % (0-2); EOSINOPHILS 1.1 % (0-7); HEMATOCRIT 32.9 % (36.0-48.0); HEMOGLOBIN 11.3 g/dL (12-16); IMMATURE GRANULOCYTES 0.7 % (0-5); LYMPHOCYTES 10.3 % (15-50); MCH 29.5 pg (26.0-34.0); MCHC 34.3 g/dL (31.0-37.0); MCV 85.9 fL (80.0-100.0); MEAN PLATELET VOLUME 9.4 fL (7.4-10.4); MONOCYTES 9.3 % (2-11); NEUTROPHILS 78.3 % (40-80); PLATELET COUNT 215 10x3/uL (130-400); RBC 3.83 10x6/uL (4.00-5.40); RDW 15.8 % (11.5-14.5); WBC 10.3 10x3/uL (4.8-10.8)
[2018-12-30 09:17] LABS: POTASSIUM - SERUM 3.7 mmol/L (3.5-5.1)
[2018-12-30 09:18] LABS: ANION GAP 13.5 mmol/L (8-16); CALCIUM 8.6 mg/dL (8.5-10.1); CARBON DIOXIDE 27.2 mmol/L (21.0-32.0)
[2018-12-31] VITALS (24 sets, daily range): BP systolic 95–138; BP diastolic 37–72
[2018-12-31 06:37] LABS: BASOPHILS 0.3 % (0-2); EOSINOPHILS 2.2 % (0-7); HEMATOCRIT 28.6 % (36.0-48.0); HEMOGLOBIN 9.8 g/dL (12-16); IMMATURE GRANULOCYTES 0.8 % (0-5); MCH 29.9 pg (26.0-34.0); MCHC 34.3 g/dL (31.0-37.0); MCV 87.2 fL (80.0-100.0); MEAN PLATELET VOLUME 9.7 fL (7.4-10.4); MONOCYTES 12.6 % (2-11); NEUTROPHILS 67.1 % (40-80); PLATELET COUNT 175 10x3/uL (130-400); RBC 3.28 10x6/uL (4.00-5.40); RDW 15.6 % (11.5-14.5); WBC 7.8 10x3/uL (4.8-10.8)
[2018-12-31 06:41] LABS: CALCIUM 7.9 mg/dL (8.5-10.1); CARBON DIOXIDE 27.8 mmol/L (21.0-32.0); CHLORIDE - SERUM 110 mmol/L (98-107); SODIUM 143 mmol/L (136-145); UREA NITROGEN 20 mg/dL (7-18); eGFR NON AFRICAN AMERICAN 85 mL/min (90-120)
[2018-12-31 06:45] LABS: CALC OSMOLALITY 287 mosm/kg (275-300); CREATININE - SERUM 0.7 mg/dL (0.6-1.3); GLUCOSE 101 mg/dL (74-106)
[2019-01-01] VITALS (10 sets, daily range): BP systolic 112–130; BP diastolic 46–59
--- NOTE | 2019-01-03 09:11 | MORECARE ---
CASE MANAGEMENT DISCHARGE SUMMARY PATIENT: SULEMA CONRAD UNIT: [id number] ADM DATE: 12/28/18 AGE: 83 : [birth year] SEX: F ROOM/BED: D.[facility] AUTHOR: KAITLYN,DOC PHYSICIAN: REFERRING PHYSICIAN: CALVIN PEREZ MD DATE OF SERVICE: 01/03/19 Discharge Plan Patient Name: SULEMA CONRAD Facility: [facility]:[place] : 1935 Planned Disposition: Home Anticipated Discharge Date: Discharge Date: 01/01/2019 Expected LOS: Initial Reviewer: [email or web address] Initial Review Date: 12/28/2018 Generated: 01/03/19 10:11 am DCP- Discharge Planning Updated by [email or web address]: Sammie Perez on 12/28/18 9:[address] Patient Name: SULEMA CONRAD Admission Status: Elective Accout number: [id number] Admission Date: 12-28-2018 : 1935 Admission Diagnosis: Attending: GENTRY PEREZ Current LOS: 1 Anticipated DC Date: Planned Disposition: Home Primary Insurance: MEDICARE A & B Discharge Planning Comments: CM met with patient's son (Shayan) and spouse at bedside after explaining CM role and obtaining verbal consent. Patient is recovering post operatively. Patient lives at home alone and plans to return there upon discharge. CM discussed availability / needs of home health and medical equipment. Family uncertain of what outcome / needs maybe at this time. Patient's son (Shayan) stated that his mother needs a knee brace to help her ambulate better at home. CM will continue to follow and assist as needed with discharge planning / needs. Lead Programmer Analyst: Sammie Perez DCPIA - Discharge Planning Initial Assessment Updated by [email or web address]: Sammie Perez on 12/28/18 10:40 pm * Is the patient Alert and Oriented? No * How many steps to enter\exit or inside your home? * PCP UNKNOWN * Pharmacy [facility] * Preadmission Environment Home Alone * ADLs Independent * Equipment Cane * List name and contact numbers for known caregivers / representatives who currently or will assist patient after discharge: SHAYAN CONRAD - SON- [phone] * Verbal permission to speak to the caregivers and representatives has been obtained from the patient. N/A * Community resources currently utilized None * Additional services required to return to the preadmission environment? No * Can the patient safely return to the preadmission environment? Yes * Has this patient been hospitalized within the prior 30 days at any hospital? No Last DP export: 12/28/18 9:51 p Patient Name: SULEMA CONRAD Page 91245 at 0911 All edits/amendments must be made on the electronic document DICTATION DATE: 01/03/19910 METAL FINISH INSPECTOR: MICK 01/03/19910 RPT#: [id number] DC DATE:01/01/19 STATUS: DIS IN [facility] [address] [place] [address] END OF REPORT
== END 2019-01-01 11:30 | disposition home or self-care (01) | DRG 252 ==
LOC: D.US 14:15 → D.CVICU 15:40 → D.SDCHOLD 15:40 → D.CVICU 15:54
PROVIDERS: Thoracic Surgery (Cardiothoracic Vascular Surgery); ADMIT Internal Medicine Interventional Cardiology; ATTEND Internal Medicine Interventional Cardiology
PROC: 04CK0ZZ Extirpation of Matter from Right Femoral Artery, Open Approach (ICD-10-PCS; 2018-12-28)
PROC: 04QK0ZZ Repair Right Femoral Artery, Open Approach (ICD-10-PCS; principal; 2018-12-28 14:00)
DX: I72.4 Aneurysm of artery of lower extremity (principal); R57.1 Hypovolemic shock; D62 Acute posthemorrhagic anemia; I48.0 Paroxysmal atrial fibrillation; I10 Essential (primary) hypertension; I35.0 Nonrheumatic aortic (valve) stenosis

== ENCOUNTER 2020-01-05 09:49 | Inpatient (IN) | payer MEDICARE, BC ==
[~2020-01-05] VITALS: Ht 167.6 cm; Wt 53.2 kg
[2020-01-05] MEDS ORDERED: CHLOROTHIAZIDE500 MG PO (09:56)
[2020-01-05] MEDS ORDERED: ASPIRIN EC81 M1 PO (09:56)
[2020-01-05 10:00] VITALS: BP 147/69
--- NOTE | 2020-01-05 10:00 | NUR ---
TRAUMA BAND NUMBER [id number]
[2020-01-05 10:15] LABS: BASOPHILS 0.1 % (0-2); EOSINOPHILS 0.7 % (0-7); HEMATOCRIT 39.4 % (36.0-48.0); HEMOGLOBIN 13.3 g/dL (12-16); IMMATURE GRANULOCYTES 0.2 % (0-5); LYMPHOCYTES 6.6 % (15-50); MCH 30.9 pg (26.0-34.0); MCHC 33.8 g/dL (31.0-37.0); MCV 91.6 fL (80.0-100.0); MEAN PLATELET VOLUME 9.2 fL (7.4-10.4); MONOCYTES 4.9 % (2-11); NEUTROPHILS 87.5 % (40-80); PLATELET COUNT 210 10x3/uL (130-400); RDW 12.4 % (11.5-14.5)
[2020-01-05 10:23] LABS: ANION GAP 12.5 mmol/L (8-16); CALCIUM 9.1 mg/dL (8.5-10.1); CARBON DIOXIDE 27.1 mmol/L (21.0-32.0); CREATININE - SERUM 0.9 mg/dL (0.6-1.3); POTASSIUM - SERUM 3.6 mmol/L (3.5-5.1)
[2020-01-05 10:30] LABS: ALBUMIN 3.7 g/dL (3.4-5.0); BILIRUBIN - TOTAL 0.67 mg/dL (0.2-1.3); PROTEIN - SERUM 6.9 g/dL (6.4-8.2)
[2020-01-05 10:31] LABS: APTT 26.3 SECONDS (22.8-39.4); INR 1.07 (0.85-1.17); PROTIME 13.9 SECONDS (11.6-15.0)
--- NOTE | 2020-01-05 10:49 | NUR ---
URINE SENT TO LAB
[2020-01-05 11:43] LABS: BACTERIA MODERATE /hpf (NEGATIVE); BILIRUBIN NEGATIVE (NEGATIVE); EPITHELIAL CELLS RARE /hpf (0-5); GLUCOSE 500 mg/dL (NEGATIVE); KETONE NEGATIVE (NEGATIVE); NITRITE NEGATIVE (NEGATIVE); RED CELLS - URINE NONE SEEN /hpf (0-5); UROBILINOGEN NORMAL (NORMAL); WHITE CELLS - URINE 0-5 /hpf (NEGATIVE)
[2020-01-05 16:46] VITALS: BP 111/69
--- NOTE | 2020-01-05 18:50 | NUR ---
PATIENT IN BED WITH IV INTACT. NO COMPLAINTS OR SIGNS OF DISTRESS. PURE WICK ON. CALL LIGHT WITHIN REACH.
[2020-01-05 20:00] VITALS: BP 94/48
[2020-01-05 20:11] VITALS: BP 116/63; Ht 167.6 cm; Wt 53.2 kg
[2020-01-06] VITALS (16 sets, daily range): BP systolic 93–144; BP diastolic 47–76
--- NOTE | 2020-01-06 02:22 | NUR ---
PT RESTING IN BED. EYES CLOSED. NO SIGNS OF DISTRESS. BREATHING EVEN AND UNLABORED. IV SITE LT AC DRESSING CLEAN DRY AND INTACT. NO SIGNS OF INFECTION OR INFULTRATION. LUNG SOUNDS CLEAR. BOWEL SOUNDS ACTIVE. SKIN CLEAN DRY AND INTACT. WILL CONTINUE PLAN OF CARE. CALL LIGHT IN REACH. BED LOWERED AND LOCKED. BED RAILS UPX2. BED ALARM AND ALL FALL PRECAUTIONS ON.
--- NOTE | 2020-01-06 02:45 | NUR ---
I have reviewed this patient and I concur with the Shift Assessment completed by the Licensed Practical Nurse today this shift.
[2020-01-06 04:27] LABS: BASOPHILS 0.2 % (0-2); EOSINOPHILS 0.4 % (0-7); HEMATOCRIT 34.9 % (36.0-48.0); HEMOGLOBIN 11.6 g/dL (12-16); IMMATURE GRANULOCYTES 0.2 % (0-5); LYMPHOCYTES 21.4 % (15-50); MCH 30.5 pg (26.0-34.0); MCHC 33.2 g/dL (31.0-37.0); MCV 91.8 fL (80.0-100.0); MEAN PLATELET VOLUME 9.5 fL (7.4-10.4); MONOCYTES 10.8 % (2-11); PLATELET COUNT 215 10x3/uL (130-400); RDW 12.5 % (11.5-14.5)
[2020-01-06 04:32] LABS: WBC 9.9 10x3/uL (4.8-10.8)
[2020-01-06 04:41] LABS: ANION GAP 10.8 mmol/L (8-16); CALCIUM 8.8 mg/dL (8.5-10.1); CARBON DIOXIDE 28.5 mmol/L (21.0-32.0)
[2020-01-06 04:42] LABS: POTASSIUM - SERUM 4.3 mmol/L (3.5-5.1)
--- NOTE | 2020-01-06 10:46 | NUR ---
PATIENT BACK FROM SURGERY. MEPILEX ON RIGHT HIP. SLIGHTLY SATURATED. LEFT UPPER LEG MEPILEX CDI. BANDAID RIGHT BELOW MEPILEX ON UPPER LEG CDI. PULSE WEAK ON RIGHT PEDAL. MARKED FOR FREQUENT CHECKS. VS STABLE. CL IN REACH. ICE PACK ON RIGHT HIP/UPPER LEG. NO CO AT THIS TIME.
--- NOTE | 2020-01-06 15:51 | NUR ---
PATIENT LAYING ON
--- NOTE | 2020-01-06 19:35 | NUR ---
PATIENT ALERT AND ORIENTED TALKING ON PHONE WHEN ENTERING THE ROOM. PATIENT HAS RIGHT HIP INCISION WITH NO BLOODY DRAINAGE NOTED AT THIS TIME. RIGHT PEDAL PULSE IS PALPABLE. PATIENT HAS LEFT FOREARM IV THAT IS PATENT. PATIENT DENIES PAIN AT THIS TIME, STATES SHE JUST RECEIVED A "PAIN SHOT" AND ANSWERS "YES" THAT IT WAS EFFECTIVE. BED ALARM IS ON FOR FALL PRECAUTIONS. DENIES FURTHER NEEDS AT THIS TIME. CALL LIGHT CLOSE. CPOC.
--- NOTE | 2020-01-06 19:49 | NUR ---
IV THERAPY RESTARTED IN LEFT FOREARM ONE ATTEMPT. IV THERAPY DC'ED WITH TIP INTACT FROM LEFT AC. PATIENT BLADDER SCANNED SHOWED 750 ML. WAS REPOSITIONED IN BED WITH CLEAN PAD UNDERNEATH. IN AND OUT CATH BLADDER RELEASED 85O ML. CL IN REACH. WCTM
[2020-01-07] VITALS: BP 138/60
--- NOTE | 2020-01-07 00:30 | NUR ---
I have reviewed this patient and I concur with the Shift Assessment completed by the Licensed Practical Nurse today this shift.
[2020-01-07 04:00] VITALS: BP 140/67
--- NOTE | 2020-01-07 05:32 | NUR ---
PATIENT PUREWICK CATHETER CANNISTER EMPTY AND PAD DRY. PATIENT REPORTS NO URGE TO URINATE. BLADDER SCAN PERFORMED AND SHOWED "MAX 298". PATIENT ASKED TO WAIT TO SEE IF SHE HAS URGE. PATIENT STATED SHE WAS IN PAIN. RETRIEVED PRN MORPHINE FROM [employer], SCANNED, AND POPPED TOP OFF TO START TO PULL UP WHEN I ASKED PATIENT WHAT PAIN LEVEL WAS AND SHE STATED "I HAVE NO PAIN." ASKED PATIENT IF SHE NEEDED THE MORPHINE SHE REQUESTED AND SHE STATED "LETS SAVE IT FOR A TIME I REALLY NEED IT." WASTED IN RITAXIS AND SHARPS BY MARYJANE WITH LUCITA CINTRON
[2020-01-07 06:02] LABS: BASOPHILS 0.1 % (0-2); EOSINOPHILS 0.1 % (0-7); IMMATURE GRANULOCYTES 0.4 % (0-5); MCH 30.8 pg (26.0-34.0); MCHC 33.3 g/dL (31.0-37.0); MCV 92.3 fL (80.0-100.0); MEAN PLATELET VOLUME 9.5 fL (7.4-10.4); MONOCYTES 8.4 % (2-11); RDW 12.7 % (11.5-14.5); WBC 10.8 10x3/uL (4.8-10.8)
[2020-01-07 06:08] LABS: RBC 2.86 10x6/uL (4.00-5.40)
[2020-01-07 06:09] LABS: HEMATOCRIT 26.4 % (36.0-48.0); HEMOGLOBIN 8.8 g/dL (12-16); PLATELET COUNT 157 10x3/uL (130-400)
[2020-01-07 06:14] LABS: CALC OSMOLALITY 269 mosm/kg (275-300); CALCIUM 7.9 mg/dL (8.5-10.1); CARBON DIOXIDE 25.2 mmol/L (21.0-32.0); CHLORIDE - SERUM 100 mmol/L (98-107); GLUCOSE 146 mg/dL (74-106); POTASSIUM - SERUM 3.9 mmol/L (3.5-5.1); SODIUM 132 mmol/L (136-145); UREA NITROGEN 17 mg/dL (7-18); eGFR NON AFRICAN AMERICAN 84 mL/min (90-120)
[2020-01-07 06:15] LABS: CREATININE - SERUM 0.7 mg/dL (0.6-1.3)
--- NOTE | 2020-01-07 08:00 | NUR ---
ASSESSMENT PER FLOW SHEET. PATIENT IS WITHOUT DISTRESS.FALL PREVENTION IN PLACE WITH BED ALARM.
[2020-01-07 08:02] VITALS: BP 110/68
[2020-01-07 13:58] VITALS: BP 121/41
--- NOTE | 2020-01-07 16:19 | NUR ---
16 OCCITAN FLORES INSERTED USING TOE STRIPPER. PATIENT HAD 550CC OF URINE RETURNED IN BAG. URINE TO LAB ORDERED
[2020-01-07 18:13] VITALS: BP 125/45
--- NOTE | 2020-01-07 19:15 | NUR ---
PATIENT ALERT AND ORIENTED. TALKING ON PHONE. STATES PAIN IS JUST BEGINNING TO START. OFFERED PRN PAIN MEDICINE BUT DENIED AT THIS TIME. HAS LEFT FORE IV THAT IS INFUSING NS AND PATENT AT THIS TIME. LUNGS CLEAR TO AUSCULTATION. PATIENT HAS FLORES CATHETER DRAINING CLEAR YELLOW URINE. PATIENT HAS DRESSING X 3 TO THE RIGHT HIP. MINIMAL SWELLING. NO REDNESS AROUND AREA AND NO NEW SIGNS OF BLOODY DRAINAGE AT THIS TIME. CALL LIGHT IN REACH OF PATIENT. CPOC.
[2020-01-07 20:00] VITALS: BP 119/53
--- NOTE | 2020-01-07 20:00 | NUR ---
REQUESTED PAIN MEDICINE. PROVIDED WITH HS MEDICATIONS. FSBS 137. PROVIDED EDUCATION ABOUT DIABETES TO PATIENT. PATIENT RECEPTIVE TO TEACHING. DENIES FURTHER NEEDS AT THIS TIME. CPOC.
--- NOTE | 2020-01-07 23:01 | OP ---
PATIENT NAME: SULEMA CONRAD MEDICAL RECORD: [id number] :35 LOCATION:D.MS George2224 ADMISSION DATE:01/05/20 SURGEON: STUART CASH MD DATE OF OPERATION: 01/06/2020 PREOPERATIVE DIAGNOSIS: Right intertrochanteric fracture. POSTOPERATIVE DIAGNOSIS: Right intertrochanteric fracture. PROCEDURE: Cephalomedullary fixation (gamma nail) right intertrochanteric hip fracture. SURGEON: Stuart Cash MD X RAY PHYSICIAN: None. ANESTHESIOLOGIST: Fabián Chavira. INTRAOPERATIVE COMPLICATIONS: None. SUMMARY OF PATHOLOGIC FINDINGS: Consistent with the preoperative radiographs, the patient had a standard oblique fracture of the intertrochanteric, which was reduced nicely on AP and lateral planes. IMPLANTS USED: Zeuss gamma nail short 125 with 100 compression screw 35 interlocking screw distally. OPERATIVE SUMMARY IN DETAIL: After obtaining the appropriate preoperative orthopedic surgery consent as well as anesthetic consultation, evaluation and clearance, the patient was brought to the operating room and placed on the operating table in a supine position. After adequate general laryngeal mask airway was administered, the patient was placed on the fracture table. The patient was held firmly to the fracture table with a seat belt strap. She was well padded and protected. The left leg was placed in the well leg martino. The right leg was placed in the traction boot. A reduction maneuver was performed under fluoroscopic guidance, reducing intertrochanteric on AP and lateral planes. At this point, the appropriate timeout was taken and agreed upon by all given the patient's unique identifiers. Hip was then prepped and draped in routine sterile fashion. Incision was made at the tip of the greater trochanter, taken down. An awl was utilized for guidewire passing proximal ring, was then followed by insertion of 125 nail to the appropriate depth as seen on AP and lateral planes. The guide pin for the compression screw was placed to the appropriate again position on AP and lateral planes. Reaming was then followed by insertion of the compression screw. Derotational screw was then put into place followed by compression of the fracture. The fracture was compressed and then the distal interlocking screw was utilized for distal interlocking again on fluoroscopic guidance. Having completed this, radiographs were taken and submitted for final radiologist review. The wounds were irrigated and closed with Vicryl followed by skin kwasi. Sterile dressings were applied. The patient was awakened and taken to recovery room in stable condition. All final needle and sponge counts were correct. TRANSINT:[id number] Voice Confirmation ID: [id number] DOCUMENT ID: [id number] OPERATIVE REPORT [id number] SULEMA CONRAD MD, STUART GILL at 2301 CC: [id number] DICTATION DATE: 01/06/20 1004 PSYCH RN: 01/06/20 1311 ADM IN [place] [id number] [place] [address]
[2020-01-08] VITALS: BP 108/54
[2020-01-08 04:00] VITALS: BP 107/52
--- NOTE | 2020-01-08 04:26 | NUR ---
I have reviewed this patient and I concur with the Shift Assessment completed by the Licensed Practical Nurse today this shift.
[2020-01-08 05:14] LABS: BASOPHILS 0.2 % (0-2); EOSINOPHILS 0.7 % (0-7); HEMATOCRIT 21.6 % (36.0-48.0); IMMATURE GRANULOCYTES 0.4 % (0-5); LYMPHOCYTES 10.9 % (15-50); MCH 30.5 pg (26.0-34.0); MCHC 32.9 g/dL (31.0-37.0); MCV 92.7 fL (80.0-100.0); MEAN PLATELET VOLUME 9.2 fL (7.4-10.4); NEUTROPHILS 74.8 % (40-80); PLATELET COUNT 155 10x3/uL (130-400); RBC 2.33 10x6/uL (4.00-5.40); RDW 12.6 % (11.5-14.5); WBC 8.4 10x3/uL (4.8-10.8)
[2020-01-08 05:15] LABS: HEMOGLOBIN 7.1 g/dL (12-16)
[2020-01-08 05:30] LABS: CALC OSMOLALITY 262 mosm/kg (275-300); CALCIUM 7.8 mg/dL (8.5-10.1); CARBON DIOXIDE 25.9 mmol/L (21.0-32.0); CHLORIDE - SERUM 99 mmol/L (98-107); CREATININE - SERUM 0.7 mg/dL (0.6-1.3); GLUCOSE 123 mg/dL (74-106); POTASSIUM - SERUM 3.2 mmol/L (3.5-5.1); SODIUM 130 mmol/L (136-145); UREA NITROGEN 14 mg/dL (7-18); eGFR NON AFRICAN AMERICAN 84 mL/min (90-120)
--- NOTE | 2020-01-08 07:37 | NUR ---
resting in bed, no distress noted, iv infusing, awake, denies pain
[2020-01-08 09:50] VITALS: BP 124/104
[2020-01-08 13:40] VITALS: BP 130/79
[2020-01-08 16:00] VITALS: BP 114/53
--- NOTE | 2020-01-08 19:05 | NUR ---
PATIENT ALERT AND ORIENTED. CURRENTLY RECEIVING BLOOD TRANSFUSION. VITAL SIGNS ARE STABLE. NO SIGNS OF INFILTRATION TO IV SITE IN THE LEFT FOREARM. PATIENT DENIES PAIN OR DISCOMFORT. CALL LIGHT CLOSE. BED ALARM ON. CPOC.
[2020-01-08 20:00] VITALS: BP 100/43
--- NOTE | 2020-01-08 21:45 | NUR ---
BLOOD INFUSION COMPLETED. PATIENT TOLERATED WELL. VITAL SIGNS STABLE. CPOC.
[2020-01-09 00:33] VITALS: BP 109/52
--- NOTE | 2020-01-09 01:50 | NUR ---
RESTING WITH NO SIGNS OR SYMPTOMS OF DISTRESS AT THIS TIME. CALL LIGHT CLOSE. BED ALARM ON. CPOC.
[2020-01-09 04:30] VITALS: BP 112/60
[2020-01-09 04:37] LABS: BASOPHILS 0.3 % (0-2); EOSINOPHILS 2.1 % (0-7); IMMATURE GRANULOCYTES 0.7 % (0-5); LYMPHOCYTES 17.8 % (15-50); MCHC 34.1 g/dL (31.0-37.0); MCV 90.9 fL (80.0-100.0); MEAN PLATELET VOLUME 9.2 fL (7.4-10.4); MONOCYTES 14.8 % (2-11); NEUTROPHILS 64.3 % (40-80); PLATELET COUNT 153 10x3/uL (130-400); RDW 13.2 % (11.5-14.5); WBC 7.3 10x3/uL (4.8-10.8)
[2020-01-09 04:48] LABS: CALC OSMOLALITY 268 mosm/kg (275-300); CALCIUM 7.5 mg/dL (8.5-10.1); CARBON DIOXIDE 25.8 mmol/L (21.0-32.0); CHLORIDE - SERUM 103 mmol/L (98-107); CREATININE - SERUM 0.7 mg/dL (0.6-1.3); GLUCOSE 112 mg/dL (74-106); POTASSIUM - SERUM 3.8 mmol/L (3.5-5.1); SODIUM 134 mmol/L (136-145); UREA NITROGEN 13 mg/dL (7-18); eGFR NON AFRICAN AMERICAN 84 mL/min (90-120)
[2020-01-09 04:49] LABS: HEMOGLOBIN 9.9 g/dL (12-16); RBC 3.19 10x6/uL (4.00-5.40)
[2020-01-09 07:53] VITALS: BP 131/61
[2020-01-09] MEDS ORDERED: ELIQUIS2.5 MG PO (08:42)
[2020-01-09] MEDS ORDERED: ULTRAM50 MG PO (08:45)
--- NOTE | 2020-01-09 11:36 | NUR ---
Rehab Prescreening Consult recieved and the chart has been reviewed. She meets criteria for the ARU and will be accepted when the physician feels the patient is ready for discharge to rehab. Discussed with the CM Mariama Galvin RN. Donna Mccain RN Clinical Liaison, Rehab
--- NOTE | 2020-01-09 12:23 | NUR ---
PT HAD RIGHT HIP SURGERY ON 01/06/2020. INCISION IS INTACT WITH NO REDNESS, EDEMA OR DRAINAGE. PT IS AT RISK FOR IMPAIRED SKIN INTEGRITY D/T DECREASED MOBILTIY: -TURN/REPOSITION Q 2 HOURS (REPOSITION HOURLY IF UP IN CHAIR) -FLOAT HEELS -PERSONAL CARE DAILY AND NEEDED. APPLY CALMOSEPTINE IF REDNESS IS NOTED DUE TO INCONTINENCE/MOISTURE -DOCUMENT SKIN ASSESSMENT Q SHIFT -CONSULT WOUND CARE IF PRESSURE INJURIES ARE PRESENT AND/OR FOR NON-BLANCHABLE REDNESS OVER BONY PROMINENCES
[2020-01-09 12:35] VITALS: BP 124/62
--- NOTE | 2020-01-09 13:21 | MORECARE ---
CASE MANAGEMENT DISCHARGE SUMMARY PATIENT: SULEMA CONRAD UNIT: [id number] ADM DATE: 01/05/20 AGE: 84 : 35 SEX: F ROOM/BED: D.2224 AUTHOR: KATILYN,DOC PHYSICIAN: REFERRING PHYSICIAN: JOHNNY CONDON MD DATE OF SERVICE: 01/09/20 Discharge Plan Patient Name: SULEMA CONRAD Facility: [facility]:[place] : 1935 Planned Disposition: Inpatient Rehab Anticipated Discharge Date: Discharge Date: Expected LOS: Initial Reviewer: [email or web address] Initial Review Date: 01/05/2020 Generated: 01/09/20 2:20 pm Comments DCP- Discharge Planning Updated by [email or web address]: Maryse Leblanc on 01/09/20 12:[address] Patient Name: SULEMA CONRAD Admission Status: ER Accout number: [id number] Admission Date: 01-05-2020 : 1935 Admission Diagnosis: Attending: JOHNNY CONDON Current LOS: 4 Anticipated DC Date: Planned Disposition: Inpatient Rehab Primary Insurance: MEDICARE A & B Discharge Planning Comments: CM met with patient to complete initial dc planning assessment. CM educated patient on the CM role and verbal consent given by patient to complete assessment. Patient lives at home alone with her dog where she states she is independent with her care. At discharge patient plans to go to inpatient rehab at [facility] then to return home and feels this is a safe discharge. CM discussed availability of home health, rehab services, and medical equipment. She has a walker, wheelchair, cane, shower chair. Her son will be her compressed air pile driver operator home. [facility] served and explained to patient. Patient should DC to inpatient rehab today. Patient denied known discharge needs at this time. CM will continue to follow and will assist as needed with dc plans/needs. Director Geothermal Operations: Maryse Leblanc DCPIA - Discharge Planning Initial Assessment Updated by [email or web address]: Maryse Leblanc on 01/09/20 1:15 pm * How many steps to enter\exit or inside your home? * PCP [facility] * [facility] * Preadmission Environment Home Alone * ADLs Independent * Equipment Cane Rolling Walker Shower Chair Walker Wheelchair * List name and contact numbers for known caregivers / representatives who currently or will assist patient after discharge: MISBAH CONRAD (SON) [phone] * Verbal permission to speak to the caregivers and representatives has been obtained from the patient. N/A * Community resources currently utilized None * Additional services required to return to the preadmission environment? Yes * Can the patient safely return to the preadmission environment? Yes * Has this patient been hospitalized within the prior 30 days at any hospital? No Coverage Notice Reviewer: [email or web address] Leblanc Notice Issued Date-Time: 01/09/2020 13:00 Notice Type: IM Discharge Notice Notice Delivered To: Patient Relationship to Patient: Rn Rehab Name: Delivery Method: HAND - Hand Delivered Charisma Days: Prior Verbal Notification: Recipient Understood Notice: Yes Recipient Signature: Yes Med Rec Note Co-signed by Attending: Coverage Notice Comment: Reviewer: [id number] Leblanc Notice Issued Date-Time: 01/09/2020 13:00 Notice Type: Patient Choice Letter Notice Delivered To: Patient Relationship to Patient: Rn Rehab Name: Delivery Method: HAND - Hand Delivered Charisma Days: Prior Verbal Notification: Recipient Understood Notice: Yes Recipient Signature: Yes Med Rec Note Co-signed by Attending: Coverage Notice Comment: charito for inpatient rehab Patient Name: SULEMA CONRAD Page 68427 at 1321 All edits/amendments must be made on the electronic document DICTATION DATE: 01/09/20 1320 ASSURANCE MANAGER INSURANCE: MICK 01/09/20 1320 RPT#: [id number] DC DATE: STATUS: ADM IN [facility] [address] [place] [address] END OF REPORT
[2020-01-09] MEDS ORDERED: Levaquin PO (13:57)
--- NOTE | 2020-01-09 15:34 | NUR ---
CALLED REHAB IN REGARDS TO POSSIBLE ROOM ASSIGNMENT, PER AMARJIT, NO INFORMATION IS AVAILABLE YET, PT LYING IN BED, NO S/SX OF DISTRESS, CL IN ERACH, CONTINUE WITH PLAN OF CARE
--- NOTE | 2020-01-09 16:55 | NUR ---
I have reviewed this patient and I concur with the Shift Assessment completed by the Licensed Practical Nurse today this shift.
[2020-01-09 17:13] VITALS: BP 125/66
--- NOTE | 2020-01-10 09:13 | MORECARE ---
CASE MANAGEMENT DISCHARGE SUMMARY PATIENT: SULEMA CONRAD UNIT: [id number] ADM DATE: 01/05/20 AGE: 84 : 35 SEX: F ROOM/BED: D.2224 AUTHOR: KAITLYN,DOC PHYSICIAN: REFERRING PHYSICIAN: JOHNNY CONDON MD DATE OF SERVICE: 01/10/20 Discharge Plan Patient Name: SULEMA CONRAD Facility: [facility]:[place] : 1935 Planned Disposition: Inpatient Rehab Anticipated Discharge Date: Discharge Date: 01/09/2020 Expected LOS: Initial Reviewer: [email or web address] Initial Review Date: 01/05/2020 Generated: 01/10/20 10:12 am Comments DCP- Discharge Planning Updated by [email or web address]: Maryse Leblanc on 01/09/20 12:[address] Patient Name: SULEMA CONRAD Admission Status: ER Accout number: [id number] Admission Date: 01-05-2020 : 1935 Admission Diagnosis: Attending: JOHNNY CONDON Current LOS: 4 Anticipated DC Date: Planned Disposition: Inpatient Rehab Primary Insurance: MEDICARE A & B Discharge Planning Comments: CM met with patient to complete initial dc planning assessment. CM educated patient on the CM role and verbal consent given by patient to complete assessment. Patient lives at home alone with her dog where she states she is independent with her care. At discharge patient plans to go to inpatient rehab at [facility] then to return home and feels this is a safe discharge. CM discussed availability of home health, rehab services, and medical equipment. She has a walker, wheelchair, cane, shower chair. Her son will be her jinriksha driver home. [facility] served and explained to patient. Patient should DC to inpatient rehab today. Patient denied known discharge needs at this time. CM will continue to follow and will assist as needed with dc plans/needs. Flavoring Maker: Maryse Leblanc DCPIA - Discharge Planning Initial Assessment Updated by [email or web address]: Maryse Leblanc on 01/09/20 1:15 pm * How many steps to enter\exit or inside your home? * PCP WACISSA * [facility] * Preadmission Environment Home Alone * ADLs Independent * Equipment Cane Rolling Walker Shower Chair Walker Wheelchair * List name and contact numbers for known caregivers / representatives who currently or will assist patient after discharge: MISBAH CONRAD (SON) [phone] * Verbal permission to speak to the caregivers and representatives has been obtained from the patient. N/A * Community resources currently utilized None * Additional services required to return to the preadmission environment? Yes * Can the patient safely return to the preadmission environment? Yes * Has this patient been hospitalized within the prior 30 days at any hospital? No Coverage Notice Reviewer: [email or web address] Leblanc Notice Issued Date-Time: 01/09/2020 13:00 Notice Type: IM Discharge Notice Notice Delivered To: Patient Relationship to Patient: Mobile Crane Operator Name: Delivery Method: HAND - Hand Delivered Charisma Days: Prior Verbal Notification: Recipient Understood Notice: Yes Recipient Signature: Yes Med Rec Note Co-signed by Attending: Coverage Notice Comment: Reviewer: [email or web address] Leblanc Notice Issued Date-Time: 01/09/2020 13:00 Notice Type: Patient Choice Letter Notice Delivered To: Patient Relationship to Patient: Mobile Crane Operator Name: Delivery Method: HAND - Hand Delivered Charisma Days: Prior Verbal Notification: Recipient Understood Notice: Yes Recipient Signature: Yes Med Rec Note Co-signed by Attending: Coverage Notice Comment: charito for inpatient rehab Last DP export: 01/09/20 12:21 p Patient Name: SULEMA CONRAD Page [phone] at 0913 All edits/amendments must be made on the electronic document DICTATION DATE: 01/10/20911 BOLT CUTTER: MICK 01/10/20911 RPT#: [id number] DC DATE:01/09/20 STATUS: DIS IN [facility] [address] [place] [address] END OF REPORT
== END 2020-01-09 17:48 | DRG 481 ==
LOC: D.ER 09:49 → D.MS 10:48
PROVIDERS: Family Medicine; Orthopaedic Surgery; ADMIT Internal Medicine Nephrology; ATTEND Internal Medicine Nephrology
PROC: 0QS636Z Reposition Right Upper Femur with Intramedullary Internal Fixation Device, Percutaneous Approach (ICD-10-PCS; principal; 2020-01-06 08:30)
DX: S72.141A Displaced intertrochanteric fracture of right femur, initial encounter for closed fracture (principal); N39.0 Urinary tract infection, site not specified; D62 Acute posthemorrhagic anemia; N17.9 Acute kidney failure, unspecified; E87.1 Hypo-osmolality and hyponatremia; I10 Essential (primary) hypertension; E11.9 Type 2 diabetes mellitus without complications; D50.9 Iron deficiency anemia, unspecified; W19.XXXA Unspecified fall, initial encounter

== ENCOUNTER 2020-01-09 17:39 | Inpatient (IN) | payer MEDICARE, BC ==
[~2020-01-09] VITALS: Ht 167.6 cm; Wt 65.8 kg
[~2020-01-09 17:39] MED LIST changes: +ASPIRIN EC81 M1 PO; +CHLOROTHIAZIDE500 MG PO; +ELIQUIS2.5 MG PO; +Levaquin PO; +ULTRAM50 MG PO
[2020-01-09 18:12] VITALS: BP 149/66; BMI 23.4
--- NOTE | 2020-01-09 18:22 | NUR ---
ADMIT TO REHAB FROM ACUTE CARE FLOOR. SHE IS ALERT AND ORIENTED. X3 DSG TO RT HIP. NO ACTIVE DRAINAGE NOTED.. PEDAL PULSES PRESENT X2. DENIES PAIN AT PRESENT.
--- NOTE | 2020-01-09 19:06 | NUR ---
GREETED PATIENT AND INTRODUCED MYSELF HER NURSE. PATIENT IS RESTING QUIETLY AT THIS TIME. DENIES ANY NEEDS. RESPIRATIONS EVEN. NO S/S OF DISTRESS. OFF GOING BEDSIDE REPORT COMPLETED. CALL LIGHT IN REACH.
[2020-01-09 19:30] VITALS: BP 130/64
--- NOTE | 2020-01-10 00:53 | NUR ---
PT AWAKE AND LAYING IN BED RESTING WITH EYES OPEN. O2 AT 2L USE VIA NC. RESPIRATIONS EVEN. NO S/S OF DISTRESS. CALL LIGHT IN REACH
--- NOTE | 2020-01-10 00:55 | NUR ---
PT RESTING QUIETLY WITH EYES CLOSED. RESPIRATIONS EVEN. NO S/S OF DISTRESS. CALL LIGHT IN REACH.
[2020-01-10 05:52] LABS: BASOPHILS 0.2 % (0-2); EOSINOPHILS 1.5 % (0-7); HEMOGLOBIN 10.3 g/dL (12-16); IMMATURE GRANULOCYTES 0.6 % (0-5); LYMPHOCYTES 12.2 % (15-50); MCH 30.4 pg (26.0-34.0); MCHC 33.2 g/dL (31.0-37.0); MCV 91.4 fL (80.0-100.0); MONOCYTES 11.2 % (2-11); NEUTROPHILS 74.3 % (40-80); PLATELET COUNT 183 10x3/uL (130-400); RBC 3.39 10x6/uL (4.00-5.40); RDW 13.4 % (11.5-14.5)
[2020-01-10 05:55] LABS: WBC 10.1 10x3/uL (4.8-10.8)
[2020-01-10 06:12] LABS: CALC OSMOLALITY 265 mosm/kg (275-300); CALCIUM 7.7 mg/dL (8.5-10.1); CHLORIDE - SERUM 102 mmol/L (98-107); CREATININE - SERUM 0.7 mg/dL (0.6-1.3); GLUCOSE 121 mg/dL (74-106); POTASSIUM - SERUM 3.8 mmol/L (3.5-5.1); SODIUM 132 mmol/L (136-145); UREA NITROGEN 13 mg/dL (7-18); eGFR NON AFRICAN AMERICAN 84 mL/min (90-120)
[2020-01-10 06:21] LABS: CARBON DIOXIDE 24.9 mmol/L (21.0-32.0)
--- NOTE | 2020-01-10 06:33 | NUR ---
PT AWAKE AND LAYING IN BED. DENIES ANY NEEDS AT THIS TIME. CALL LIGHT IN REACH.
[2020-01-10 07:00] VITALS: BP 108/53; BP 115/54
--- NOTE | 2020-01-10 07:15 | NUR ---
REPORT RECEIVED. PT ALERT AND ORIENTED. PT FELL AT HOME AND HAD RIGHT HIP FX. REPAIRED. DRESSING TO RIGHT HIP NOTED. PT HAS BRUISING TO RENETTA ARMS. PT HAS FLORES IN PLACE FOR ACUTE RETENTION. NO COMPLAINTS OR NEEDS AT THIS TIME.
[2020-01-10 07:51] LABS: BILIRUBIN NEGATIVE (NEGATIVE); GLUCOSE NEGATIVE (NEGATIVE); KETONE NEGATIVE (NEGATIVE); NITRITE NEGATIVE (NEGATIVE); SPECIFIC GRAVITY 1.005 (1.005-1.020)
[2020-01-10 07:55] LABS: BACTERIA FEW /hpf (NEGATIVE); EPITHELIAL CELLS RARE /hpf (0-5); RED CELLS - URINE 0-5 /hpf (0-5); WHITE CELLS - URINE 0-5 /hpf (NEGATIVE)
--- NOTE | 2020-01-10 09:18 | NUR ---
PATIENT ADMITTED TO REHAB FROM ACUTE FLOOR. DME AT HOME IS A WALKER, CANE, WHEELCHAIR, AND SHOWER CHAIR. HER SON WILL TRANSPORT HER HOME. DR. ROCKWELL IS HER PCP. WILL ALEXY TO FOLLOW WITH PATIENT AND WILL ASSIST WITH NEEDS.
--- NOTE | 2020-01-10 10:00 | NUR ---
PT HAD SHOWER WITH THERAPY. BANDAGE REMOVED FROM LEG. 3 INCISIONAL SITES WITH ANN INTACT. SOME BLOOD NOTED TO TOP INCISION. PT TOLERATED WELL. WILL CONTINUE TO MONITOR.
--- NOTE | 2020-01-10 11:58 | NUR ---
BLOOD SUGAR 102. NO COVERAGE NEEDED. PT STATES THAT SHE HAS NOT HAD BLOOD SUGAR ISSUES AND THAT SHE DOES NOT CHECK THEM AT HOME.
[2020-01-10 13:17] VITALS: Ht 167.6 cm; Wt 65.8 kg
--- NOTE | 2020-01-10 19:05 | NUR ---
GREETED PATIENT AND INTRODUCED MYSELF HIS NURSE. PATIENT IS LAYING IN BED RESTING QUIETLY AT THIS TIME. DENIES ANY NEEDS AT THIS TIME. RESPIRATIONS EVEN. NO S/S OF DISTRESS. BEDSIDE SHIFT REPORT COMPLETED FROM OFF GOING NURSE. CALL LIGHT IN REACH.
[2020-01-10 23:05] VITALS: BP 101/51
--- NOTE | 2020-01-11 05:48 | NUR ---
PT RESTING QUIETLY WITH EYES CLOSED. RESPIRATIONS EVEN. NO S/S OF DISTRESS. CALL LIGHT IN REACH.
[2020-01-11 07:22] LABS: BASOPHILS 0.2 % (0-2); EOSINOPHILS 3.3 % (0-7); HEMATOCRIT 30.7 % (36.0-48.0); HEMOGLOBIN 10.1 g/dL (12-16); IMMATURE GRANULOCYTES 0.8 % (0-5); MCH 30.2 pg (26.0-34.0); MCHC 32.9 g/dL (31.0-37.0); MCV 91.9 fL (80.0-100.0); MEAN PLATELET VOLUME 8.8 fL (7.4-10.4); MONOCYTES 14.6 % (2-11); NEUTROPHILS 67.1 % (40-80); PLATELET COUNT 207 10x3/uL (130-400); RBC 3.34 10x6/uL (4.00-5.40); RDW 13.3 % (11.5-14.5); WBC 8.7 10x3/uL (4.8-10.8)
[2020-01-11 07:33] LABS: CALC OSMOLALITY 274 mosm/kg (275-300); CALCIUM 7.8 mg/dL (8.5-10.1); CARBON DIOXIDE 26.9 mmol/L (21.0-32.0); CHLORIDE - SERUM 102 mmol/L (98-107); CREATININE - SERUM 0.7 mg/dL (0.6-1.3); GLUCOSE 106 mg/dL (74-106); POTASSIUM - SERUM 3.7 mmol/L (3.5-5.1); SODIUM 137 mmol/L (136-145); UREA NITROGEN 14 mg/dL (7-18); eGFR NON AFRICAN AMERICAN 84 mL/min (90-120)
[2020-01-11 08:00] VITALS: BP 104/54
--- NOTE | 2020-01-11 10:00 | NUR ---
I have reviewed this patient and I concur with the Shift Assessment completed by the Licensed Practical Nurse today this shift.
--- NOTE | 2020-01-11 16:11 | NUR ---
CARE TEAM MEETING: PATIENT IS NEW TO UNIT AND WILL BE RA AT NEXT MEETING. WILL CONTINUE TO FOLLOW WITH PATIENT.
--- NOTE | 2020-01-11 16:30 | RHP ---
PATIENT: SULEMA CONRAD MEDICAL RECORD: [id number] ACCOUNT: [id number] LOCATION:[id number] : [birth year] ADMISSION DATE: 01/09/20 REHABILITATION HISTORY AND PHYSICAL EXAMINATION POST ADMISSION PHYSICIAN EXAMINATION ADMITTING DIAGNOSIS: Acute fracture of her right femur. HISTORY OF PRESENT ILLNESS: The patient is admitted secondary to a comminuted and displaced intertrochanteric fracture of the right femur and gamma nailing on 01/06/2020, got a history of hypertension, valvular heart disease. She has had total aortic valve replacement, presented to ER with complaints of leg pain after falling in her backyard the morning after losing her balance. Apparently, her left knee had been previously replaced and she received injections every few months in this knee. The patient was admitted to the hospital. Orthopedic was consulted. During her hospitalization, she did have acute blood loss anemia related to her surgery. She had a chronic back pain secondary to her fall and history of this in the past. She was continued on home medications, electrolyte protocol, Zofran for nausea and vomiting, Tylenol as needed for pain and fever. She was placed on GI and DVT prophylaxis throughout her stay. Barriers to her discharge home at this time include loss of mobility, pain control. She lives alone. She has got bowel and bladder training needed. She has weightbearing precautions, self-care deficits and she is currently toe-touch weightbearing on her right and will need to work towards weightbearing as tolerated. PT and OT are trying to get her back to her prior level of functioning or better. COMORBIDITIES: In this patient include hypertension, valvular heart disease, chronic back pain, arthritis valve replacement. PAST MEDICAL HISTORY: Significant for hypertension, valve replacement, arthritis. PAST SURGICAL HISTORY: Includes hysterectomy, appendectomy, and left knee replacement. ALLERGIES: ELAVIL, TRAZODONE, AND DEMEROL. CURRENT MEDICATIONS: Include Floranex daily, Levaquin 250 mg daily, aspirin chewable 81 mg daily, she is on low resistant sliding scale of insulin, sotalol 80 mg b.i.d., Eliquis 2.5 mg b.i.d., chlorothiazide 500 mg b.i.d., she is on tramadol 50 mg every 6 hours p.r.n., and MiraLax 17 grams in 8 ounces of water daily. HABITS: No alcohol or tobacco use. FAMILY HISTORY: Noncontributory. SOCIAL HISTORY: The patient hopes to return back home and get back to her prior level of functioning. REVIEW OF SYSTEMS: GENERAL: Does complain of some weakness. HEENT: She denies cold, cough, or congestion. CARDIOVASCULAR: Denies any chest pain. HISTORY AND PHYSICAL [id number] SULEMA CONRAD PHYSICAL EXAMINATION: VITAL SIGNS: Stable, afebrile. GENERAL: An thin, elderly female, in no acute distress upon exam. HEENT: Normocephalic and atraumatic. Mucosa moist. NECK: Supple. No lymphadenopathy. LUNGS: Clear in upper andrews with no wheezing, rhonchi or rales. HEART: Regular rate and rhythm. She does have a holosystolic murmur. ABDOMEN: Soft, benign, and nondistended. Positive bowel sounds times 4. EXTREMITIES: No clubbing, cyanosis or edema. Postop area looks pretty good. NEUROLOGIC: She does have some proximal muscle weakness. LABORATORY DATA: Her admit UA is basically negative. She does have a few bacteria and trace leukocyte esterase. White count is 10.1, H&H of 10 and 31 and platelet count is 183. Her sodium is 132, potassium 3.8, BUN and creatinine of 13 and 0.7 and blood sugar is noted to be 121. ASSESSMENT: This is an 84-year-old female patient admitted to rehab with a working diagnosis of intertrochanteric hip fracture status post gamma nailing. The patient has potential to make improvement. We instituted the following multidisciplinary therapies including, not limited to physical, occupational, respiratory, speech, nutritional services, prosthetics and orthotics. Given her complex medical condition and risks for more complications, rehabilitation services cannot be provided at a low level of care such as skilled nurse facility. PLAN: 1. Admit to [facility] for intensive inpatient therapy to include the following disciplines: A. Physical therapy to improve gait, all transfer skills and bed mobility to a modified independent level. B. Occupational therapy to improve activities of daily living. C. Case management to assist with discharge planning and placement options. D. Nutrition to assist with nutritional needs. E. Rehabilitation nursing to assist in monitoring the patient's underlying medical conditions and to assist with any type of bowel or bladder management. 2. The patient's current medication and medical care will be continued. 3. The patient will be placed on standard fall precautions. 4. The patient's estimated length of stay is approximately 7-10 days. 5. We will discuss the patient during care team staff meeting this week. TRANSINT:[id number] Voice Confirmation ID: [id number] DOCUMENT ID: [id number] BIBIANA notes whether there has been none or any medical/functional change since admission: - No change since pre-admission screen. BIBIANA attests patient continues to be appropriate for IRF: - Continues to be appropriate. HISTORY AND PHYSICAL [id number] SULEMA CONRAD,GLADIS FLANNERY MD at 1630 CC: [id number] DICTATION DATE: 01/10/20913 BODY STRAIGHTENER: 01/10/20 0958 ADM IN [facility] [id number] [place] [address]
--- NOTE | 2020-01-11 18:42 | NUR ---
GREETED PATIENT AND INTRODUCED MYSELF HER NURSE. PATIENT RESTING QUIETLY AT THIS TIME WATCHING TV. RESPIRATIONS EVEN. NO S/S OF DISTRESS. CALL LIGHT IN REACH.
[2020-01-11 20:33] VITALS: BP 121/50
--- NOTE | 2020-01-12 01:11 | NUR ---
PT RESTING QUIETLY WITH EYES CLOSED. RESPIRATIONS EVEN. NO S/S OF DISTRESS. CALL LIGHT IN REACH.
--- NOTE | 2020-01-12 04:05 | NUR ---
PT RESTING QUIETLY WITH EYES CLOSED. RESPIRATIONS EVEN. NO S/S OF DISTRESS. CALL LIGHT IN REACH.
[2020-01-12 08:00] VITALS: BP 120/47
--- NOTE | 2020-01-12 08:00 | NUR ---
INTRODUCED SELF TO PATIENT PUT NAME ON BOARD, PT. IN BED READING NEWSPAPER, DENIES ANY NEEDS AT THIS TIME, C/L AND H2O IN REACH.
--- NOTE | 2020-01-12 12:00 | NUR ---
PT. UP IN W/C WATCHING TV, DENIES ANY PAIN OR NEEDS AT THIS TIME, C/L AND H2O IN REACH
--- NOTE | 2020-01-12 16:04 | NUR ---
PT. UP IN W/C WATCHING TV, DENIES ANY PAIN OR NEEDS AT THIS TIME, C/L AND H2O IN REACH.
[2020-01-12 20:00] VITALS: BP 107/49
--- NOTE | 2020-01-12 22:42 | NUR ---
RECEIVED PATIENT LYING IN BED, RESTING, AAOX3, PATIENT IS ABLE TO MAKE NEEDS KNOWN AND ATTEMPTS TO DO MUCH FOR HERSELF POSSIBLE. PATIENT HAS A FLORES AND IS WEIGHT BEARING TOLERATED. CALL LIGHT WITHIN REACH. WILL CONTINUE TO MONITOR
[2020-01-13 08:00] VITALS: BP 106/54
--- NOTE | 2020-01-13 08:00 | NUR ---
PATIENT UP IN BED AWAKE AND ALERT, ASSESSMENT COMPLETE, DENIES ANY NEEDS AT THIS TIME, C/L AND H2O IN REACH.
[2020-01-13 08:09] LABS: BASOPHILS 0.4 % (0-2); HEMATOCRIT 30.5 % (36.0-48.0); HEMOGLOBIN 9.9 g/dL (12-16); IMMATURE GRANULOCYTES 0.5 % (0-5); LYMPHOCYTES 12.5 % (15-50); MCHC 32.5 g/dL (31.0-37.0); MCV 92.4 fL (80.0-100.0); MEAN PLATELET VOLUME 8.3 fL (7.4-10.4); MONOCYTES 12.6 % (2-11); RDW 12.8 % (11.5-14.5); WBC 7.5 10x3/uL (4.8-10.8)
[2020-01-13 08:24] LABS: CALC OSMOLALITY 269 mosm/kg (275-300); CALCIUM 8.2 mg/dL (8.5-10.1); CARBON DIOXIDE 29.8 mmol/L (21.0-32.0); CHLORIDE - SERUM 99 mmol/L (98-107); CREATININE - SERUM 0.7 mg/dL (0.6-1.3); GLUCOSE 111 mg/dL (74-106); PLATELET COUNT 250 10x3/uL (130-400); SODIUM 134 mmol/L (136-145); UREA NITROGEN 15 mg/dL (7-18); eGFR NON AFRICAN AMERICAN 84 mL/min (90-120)
--- NOTE | 2020-01-13 12:00 | NUR ---
PATIENT UP IN W/C WATCHING TV, DENIES ANY NEEDS AT THIS TIME, C/L AND H2O IN REACH.
--- NOTE | 2020-01-13 20:00 | NUR ---
PT IN BED WATCHING TV, LARGE WATER GIVEN, NO OTHER NEEDS NOTED, FALL PRECAUTIONS IN PLACE, FLUIDS/CALL LIGHT WITHIN REACH
[2020-01-13 20:04] VITALS: BP 98/40
--- NOTE | 2020-01-14 08:00 | NUR ---
SHIFT ASSMT COMPLETED.
[2020-01-14 10:30] VITALS: BP 120/51
--- NOTE | 2020-01-14 12:00 | NUR ---
SITTING UP EATING LUNCH.
--- NOTE | 2020-01-14 19:36 | NUR ---
PT UP IN CHAIR, NO NEEDS NOTED FALL PRECAUTIONS IN PLACE, FLUIDS/CALL LIGHT WITHIN REACH
--- NOTE | 2020-01-15 01:49 | NUR ---
PT TOILETED, NO NEEDS NOTED, FALL PRECAUTIONS IN PLACE, FLUIDS/CALL LIGHT WITHIN REACH
[2020-01-15 02:53] VITALS: BP 104/50
[2020-01-15 03:05] VITALS: BP 135/66
--- NOTE | 2020-01-15 04:32 | NUR ---
PT TOILETED, HAS +4 PITTING EDEMA TO LRE (SURGERY LEG) NO LASIX ORDER, WILL LEAVE NOTE FOR DR. LICONA AND PASS ON TO DAY NURSE,
[2020-01-15 08:11] VITALS: BP 108/47
--- NOTE | 2020-01-15 09:38 | NUR ---
PATIENT IS ALERT/ORIENT. HELPED INTO BATHROOM. STAND BY ASST FROM BED TO WHEELCHAIR. STRESS INCONT OF URINE. WEARING BRIEFS. WILL CONTINUE WITH PLAN OF CARE
--- NOTE | 2020-01-15 13:30 | NUR ---
I have reviewed this patient and I concur with the Shift Assessment completed by the Licensed Practical Nurse today this shift.
--- NOTE | 2020-01-15 20:03 | NUR ---
PT IN BED, FSBS D/C'D TODAY, SBA, FALL PRECAUTIONS IN PLACE, FLUIDS/CALL LIGHT WITHIN REACH
--- NOTE | 2020-01-15 22:16 | NUR ---
PT TOILETED, RETURNED TO BED, COMFORTABLE AND WATCHING TV, NO OTHER NEEDS NOTED
[2020-01-16 00:16] VITALS: BP 126/66
--- NOTE | 2020-01-16 06:35 | NUR ---
NOTED DURING TOILETING BETWEEN BUTTOCKSAND ON COCCYX A REDDENED BLANCHABLE AREA, BUTT PASTE APPLIED
[2020-01-16 06:44] LABS: BASOPHILS 0.6 % (0-2); EOSINOPHILS 3.5 % (0-7); HEMATOCRIT 32.2 % (36.0-48.0); HEMOGLOBIN 10.3 g/dL (12-16); IMMATURE GRANULOCYTES 0.9 % (0-5); LYMPHOCYTES 17.8 % (15-50); MCH 29.9 pg (26.0-34.0); MCV 93.3 fL (80.0-100.0); MEAN PLATELET VOLUME 8.5 fL (7.4-10.4); MONOCYTES 8.2 % (2-11); RBC 3.45 10x6/uL (4.00-5.40); RDW 13.1 % (11.5-14.5); WBC 6.4 10x3/uL (4.8-10.8)
[2020-01-16 07:02] LABS: CALC OSMOLALITY 272 mosm/kg (275-300); CALCIUM 8.4 mg/dL (8.5-10.1); CARBON DIOXIDE 30.1 mmol/L (21.0-32.0); CHLORIDE - SERUM 101 mmol/L (98-107); CREATININE - SERUM 0.7 mg/dL (0.6-1.3); GLUCOSE 105 mg/dL (74-106); POTASSIUM - SERUM 3.8 mmol/L (3.5-5.1); SODIUM 136 mmol/L (136-145); UREA NITROGEN 16 mg/dL (7-18); eGFR NON AFRICAN AMERICAN 84 mL/min (90-120)
--- NOTE | 2020-01-16 08:00 | NUR ---
PATIENT IN BED, AWAKE AND ALERT, ASSESSMENT COMPLETE, DENIES ANY NEEDS AT THIS TIME, C/L AND H2O IN REACH.
[2020-01-16 08:12] LABS: PLATELET COUNT 317 10x3/uL (130-400)
[2020-01-16 08:24] VITALS: BP 108/51
--- NOTE | 2020-01-16 12:00 | NUR ---
PT. AWAKE AND ALERT, UP IN W/C BESIDE BED WATCHING TV, DENIES ANY NEEDS AT THIS TIME, FALL PERCAUTIONS IN PLACE, C/L AND FLUIDS IN REACH.
--- NOTE | 2020-01-16 13:09 | NUR ---
Nutrition Follow-up: Pt sitting up eating lunch at time of visit. Reports overall good PO intake. Noted Boost on table. Denies N/V/C/D. Hoping to go home soon. Diet: Regular PO intake: 50-75% Wt: 145# (01/09) Last BM: 01/14 Labs reviewed Meds noted: HCTZ, KDur -Encourage PO intake and honor food preferences. -Monitor wt. -RD following.
--- NOTE | 2020-01-16 16:00 | NUR ---
PT. RESTING IN BED WATCHING TV, DENIES ANY NEEDS AT THIS TIME, C/L AND FLUIDS IN REACH.
--- NOTE | 2020-01-16 20:00 | NUR ---
ALERT RESTING IN BED DENIES PAIN OR NEEDS AT THIS TIME, SEE SHIFT ASSESSMENT, CALL LIGHT IN REACH
[2020-01-16 20:08] VITALS: BP 117/56
--- NOTE | 2020-01-17 01:00 | NUR ---
ASSISTED WITH BEDPAN AND REPOSITIONED IN BED NO C/O OR REQUEST AT THIS TIME
--- NOTE | 2020-01-17 02:14 | NUR ---
RESTING IN BED EYES CLOSED RESP UNLABORED CALL LIGHT IN REACH
--- NOTE | 2020-01-17 06:18 | NUR ---
NO CHANGE IN ASSESSMENT
--- NOTE | 2020-01-17 07:15 | NUR ---
AROUSES EASILY TO VERBAL STIMULI.ORIENTED X 3.DENIES NEEDS.STATES SHE IS GOING HOME TODAY.INCISION X 2 TO RT HIP /THIGH WITH ANN INTACT.HEALING WELL,NO SIGNS OF INFECTION.WILL CONTINUE WITH CURRENT PLAN OF CARE,MONITOR FOR CHANGES.CL IN EASY REACH,BED IN LOW POSITION.
[2020-01-17 08:23] VITALS: BP 105/59
--- NOTE | 2020-01-17 13:00 | NUR ---
DISCHARGE TEACHING,WRITTEN AND ORAL DONE.ALL QUESTIONS ANSWERED.
--- NOTE | 2020-01-17 13:10 | NUR ---
ATTEMPTED TO CALL SON MISBAH TO REVIEW HOME MEDS,MESSAGE LEFT ON ANSWERING MACHINE.
--- NOTE | 2020-01-17 13:15 | NUR ---
PRESCRIPTIONS CALLED TO [facility] ON [address].
--- NOTE | 2020-01-17 13:32 | NUR ---
DISCHARGED HOME VIA WHEELCHAIR TO CAR.HAS ALL PERSONAL ITEMS AND INSTRUCTIONS.
--- NOTE | 2020-01-17 14:05 | NUR ---
PATIENT DISCHARGING HOME WITH FAMILY. PATIENT HAS DECLINED HOME HEALTH AND ANY DME NEEDS AT THIS TIME. JETHRO SIGNED , IMM SIGNED AND EXPLAINED, ONE GIVEN TO PATIENT AND ONE FILED IN CHART.DR. ROCKWELL 01/23/20 @ 2:15, DR. CASH 01/24/20 @ 10:30. DISCHARGE INSTRUCTIONS FAXED TO PCP [facility] REVIEWED WITH PATIENT AND FAMILY PER PRIMARY NURSE
--- NOTE | 2020-01-18 09:44 | NUR ---
PATIENT HAS CALLED AND STATES SHE WOULD LIKE TO HAVE HOME HEALTH. AN ODER HAS BEEN FAXED TO [facility].
== END 2020-01-17 13:30 | disposition home or self-care (01) | DRG 561 ==
LOC: D.REHAB 17:39
PROVIDERS: ADMIT Emergency Medicine; ATTEND Emergency Medicine
DX: S72.141D Displaced intertrochanteric fracture of right femur, subsequent encounter for closed fracture with routine healing (principal); I10 Essential (primary) hypertension; I51.89 Other ill-defined heart diseases; G89.29 Other chronic pain; M54.9 Dorsalgia, unspecified; W19.XXXD Unspecified fall, subsequent encounter; I48.91 Unspecified atrial fibrillation; I72.9 Aneurysm of unspecified site

== ENCOUNTER 2020-01-18 15:49 | Inpatient (IN) | payer MEDICARE, BC ==
[~2020-01-18] VITALS: Ht 167.6 cm; Wt 61.0 kg
[2020-01-18 17:38] LABS: BASOPHILS 0.4 % (0-2); HEMATOCRIT 35.2 % (36.0-48.0); HEMOGLOBIN 11.5 g/dL (12-16); IMMATURE GRANULOCYTES 0.7 % (0-5); MCH 30.7 pg (26.0-34.0); MCHC 32.7 g/dL (31.0-37.0); MCV 93.9 fL (80.0-100.0); MEAN PLATELET VOLUME 8.3 fL (7.4-10.4); MONOCYTES 9.4 % (2-11); NEUTROPHILS 71.5 % (40-80); PLATELET COUNT 361 10x3/uL (130-400); RBC 3.75 10x6/uL (4.00-5.40); RDW 12.9 % (11.5-14.5); WBC 10.4 10x3/uL (4.8-10.8)
[2020-01-18 17:52] LABS: APTT 26.8 SECONDS (22.8-39.4); INR 1.12 (0.85-1.17); PROTIME 14.3 SECONDS (11.6-15.0)
[2020-01-18 17:53] LABS: ANION GAP 10.5 mmol/L (8-16); CARBON DIOXIDE 28.4 mmol/L (21.0-32.0); CREATININE - SERUM 0.8 mg/dL (0.6-1.3); POTASSIUM - SERUM 3.9 mmol/L (3.5-5.1)
[2020-01-18 17:56] LABS: D-DIMER-QUANTITATIVE 3.36 ug/mLFEU (0.20-0.54)
[2020-01-18 18:00] LABS: ALBUMIN 2.7 g/dL (3.4-5.0); BILIRUBIN - TOTAL 0.91 mg/dL (0.2-1.3); PROTEIN - SERUM 6.2 g/dL (6.4-8.2)
--- NOTE | 2020-01-18 19:22 | NUR ---
55 MG LOVENOX ADMINISTERED, 5 MG WASTED.
[2020-01-18 20:00] VITALS: BP 126/55
[2020-01-18 22:07] VITALS: BP 126/55; BMI 19.4
[2020-01-19] VITALS: BP 111/60
[2020-01-19 04:00] VITALS: BP 124/53
[2020-01-19 05:10] LABS: BASOPHILS 0.6 % (0-2); EOSINOPHILS 3.7 % (0-7); HEMATOCRIT 33.6 % (36.0-48.0); HEMOGLOBIN 10.8 g/dL (12-16); IMMATURE GRANULOCYTES 0.8 % (0-5); LYMPHOCYTES 19.3 % (15-50); MCH 30.4 pg (26.0-34.0); MCHC 32.1 g/dL (31.0-37.0); MCV 94.6 fL (80.0-100.0); MEAN PLATELET VOLUME 8.5 fL (7.4-10.4); MONOCYTES 10.1 % (2-11); NEUTROPHILS 65.5 % (40-80); PLATELET COUNT 318 10x3/uL (130-400); RBC 3.55 10x6/uL (4.00-5.40); RDW 12.9 % (11.5-14.5)
[2020-01-19 05:39] LABS: WBC 7.1 10x3/uL (4.8-10.8)
[2020-01-19 05:44] LABS: ALBUMIN 2.4 g/dL (3.4-5.0); ANION GAP 7.5 mmol/L (8-16); BILIRUBIN - TOTAL 1.01 mg/dL (0.2-1.3); CALCIUM 8.5 mg/dL (8.5-10.1); CARBON DIOXIDE 30.5 mmol/L (21.0-32.0); CREATININE - SERUM 0.8 mg/dL (0.6-1.3); MAGNESIUM - SERUM 1.8 mg/dL (1.8-2.4); PHOSPHOROUS 3.8 mg/dL (2.5-4.9); PROTEIN - SERUM 4.9 g/dL (6.4-8.2); THYROID STIMULATING HORMONE 0.38 uIU/mL (0.36-3.74)
[2020-01-19 09:28] VITALS: BP 128/56
[2020-01-19 13:14] VITALS: Ht 167.6 cm; Wt 61.0 kg
[2020-01-19 13:20] VITALS: BP 108/55
[2020-01-19 16:45] VITALS: BP 125/60
--- NOTE | 2020-01-19 17:29 | NUR ---
I have reviewed this patient and I concur with the Shift Assessment completed by the Licensed Practical Nurse today this shift.
[2020-01-19 20:00] VITALS: BP 126/57
--- NOTE | 2020-01-19 21:45 | NUR ---
PT IN BED, AAO X 3, RESP EVEN AND UNLABORED, NO DISTRESS NOTED, CL IN REACH, SR UP X 2.
[2020-01-20] VITALS: BP 117/48
--- NOTE | 2020-01-20 03:56 | NUR ---
I have reviewed this patient and I concur with the Shift Assessment completed by the Licensed Practical Nurse today this shift.
[2020-01-20 04:00] VITALS: BP 115/56
[2020-01-20 05:43] LABS: BASOPHILS 0.2 % (0-2); HEMATOCRIT 29.7 % (36.0-48.0); HEMOGLOBIN 9.4 g/dL (12-16); IMMATURE GRANULOCYTES 0.4 % (0-5); LYMPHOCYTES 10.5 % (15-50); MCH 29.7 pg (26.0-34.0); MCHC 31.6 g/dL (31.0-37.0); MEAN PLATELET VOLUME 8.2 fL (7.4-10.4); NEUTROPHILS 75.9 % (40-80); PLATELET COUNT 284 10x3/uL (130-400); RBC 3.16 10x6/uL (4.00-5.40); WBC 8.4 10x3/uL (4.8-10.8)
[2020-01-20 06:26] LABS: CALC OSMOLALITY 266 mosm/kg (275-300); CARBON DIOXIDE 25.7 mmol/L (21.0-32.0); CHLORIDE - SERUM 103 mmol/L (98-107); CREATININE - SERUM 0.6 mg/dL (0.6-1.3); GLUCOSE 121 mg/dL (74-106); MAGNESIUM - SERUM 1.8 mg/dL (1.8-2.4); PHOSPHOROUS 2.9 mg/dL (2.5-4.9); POTASSIUM - SERUM 3.7 mmol/L (3.5-5.1); SODIUM 133 mmol/L (136-145); UREA NITROGEN 13 mg/dL (7-18); eGFR NON AFRICAN AMERICAN > 90 mL/min (90-120)
--- NOTE | 2020-01-20 08:00 | NUR ---
ALERT AND ORIENTED X4. EDEMA 1+ NOTED TO RLE WITH PEDAL PULSES NOTED WITH SKIN WDI.ANN INTACT TO RT FEMUR WITH ORDER TO REMOVE. BED ALARM INTACT. LUNGS CTA AND HRRR WITH TELEMETRY INTACT. ENCOURAGED TO USE CALL LIGHT FOR ASSSIT. DENIES ANY APIN OR DISCOMFORT AT THIS TIME.
[2020-01-20 08:45] VITALS: BP 104/49
[2020-01-20 12:30] VITALS: BP 119/55
--- NOTE | 2020-01-20 16:08 | NUR ---
ANN REMOVED FROM RIGHT THIGH WITH NO S/S OF INFECTION NOTED. DENIES ANY PAIN OR DISCOMFORT.
[2020-01-20 16:47] VITALS: BP 124/58
--- NOTE | 2020-01-20 19:57 | NUR ---
ASSESSING PATIENT. RIGHT HIP INCISION FROM RECENT GAMMA NAILING. ANN CASTRO'D TODAY. LOWER PART OF INCISION APPEARED TO BE DEHISCING. APPLIED THREE STERI STRIPS TO INCISION.
[2020-01-20 20:00] VITALS: BP 122/56
--- NOTE | 2020-01-20 21:13 | NUR ---
ADMINISTERING MEDICATIONS. ASSESSED PULSE PRIOR TO SOTALOL ADMINSTRATION. PULSE CURRENTLY 88. DENIES FURTHER NEEDS AT THIS TIME. BED ALARM ON. CALL LIGHT CLOSE. CPOC.
--- NOTE | 2020-01-21 02:48 | NUR ---
I have reviewed this patient and I concur with the Shift Assessment completed by the Licensed Practical Nurse today this shift.
--- NOTE | 2020-01-21 02:49 | NUR ---
I have reviewed this patient and I concur with the Shift Assessment completed by the Licensed Practical Nurse today this shift.
--- NOTE | 2020-01-21 02:49 | NUR ---
I have reviewed this patient and I concur with the Shift Assessment completed by the Licensed Practical Nurse today this shift.
[2020-01-21 04:00] VITALS: BP 125/63
[2020-01-21 05:19] LABS: HEMATOCRIT 29.5 % (36.0-48.0); HEMOGLOBIN 9.9 g/dL (12-16); LYMPHOCYTES 16.4 % (15-50); MCH 31.6 pg (26.0-34.0); MCHC 33.6 g/dL (31.0-37.0); MCV 94.2 fL (80.0-100.0); MEAN PLATELET VOLUME 8.4 fL (7.4-10.4); NEUTROPHILS 69.5 % (40-80); PLATELET COUNT 323 10x3/uL (130-400); RBC 3.13 10x6/uL (4.00-5.40); RDW 12.8 % (11.5-14.5); WBC 6.7 10x3/uL (4.8-10.8)
[2020-01-21 05:40] LABS: CALC OSMOLALITY 272 mosm/kg (275-300); CALCIUM 8.2 mg/dL (8.5-10.1); CARBON DIOXIDE 27.2 mmol/L (21.0-32.0); CHLORIDE - SERUM 104 mmol/L (98-107); CREATININE - SERUM 0.6 mg/dL (0.6-1.3); GLUCOSE 107 mg/dL (74-106); POTASSIUM - SERUM 3.5 mmol/L (3.5-5.1); SODIUM 137 mmol/L (136-145); eGFR NON AFRICAN AMERICAN > 90 mL/min (90-120)
[2020-01-21 05:41] LABS: UREA NITROGEN 9 mg/dL (7-18)
--- NOTE | 2020-01-21 09:00 | NUR ---
ALERT AND ORIENTED X4. PEDAL PULSES NOTED TO BLE WITH TRACE TO 1+ EDEMA NOTED TO RLE AND WARM TO TOUCH. MEPELEX INTACT TO BILAT. HEELS. BED ALARM INTACT. IV TO LEFT F/A S/L. ENCOURAGED TO USE CALL LIGHT FOR ASSSIT. LUNGS CTA. INCISION SITE HEALING TO RT. HIP WITH STERISTRIPS. DENIES ANY PAIN OR DISCOMFORT AT THIS TIME.
[2020-01-21 09:19] VITALS: BP 121/55
[2020-01-21 12:43] VITALS: BP 118/49
[2020-01-21 17:54] VITALS: BP 115/52
[2020-01-21 20:00] VITALS: BP 118/50
--- NOTE | 2020-01-21 20:11 | NUR ---
ADMINISTERING SOTALOL PER ORDER. ASSESSED PULSE PRIOR TO ADMINISTRATION. PULSE RATE CURRENTLY 82 WITH REGULAR RATE AND RHYTHM. PROVIDED TEACHING TO PATIENT ABOUT MEDICATION. ENCOURAGED PATIENT TO ASSESS PULSE PRIOR TO TAKING MEDICATION WHEN BACK AT HOME. PATIENT RECEPTIVE TO TEACHINGS. ASKED QUESTIONGS THAT PERTAINED TO TEACHINGS. NO FURTHER QUESTIONS AT THIS TIME. PATIENT DENIES PAIN OR NEED FOR PAIN MEDICINE. SCD'S ON BILATERALLY. PATIENT HAS CALL LIGHT AND PHONE CLOSE. PROVIDED WITH ICE WATER. DENIES FURTHER NEEDS AT THIS TIME. CPOC.
--- NOTE | 2020-01-21 20:14 | NUR ---
ADMINISTERING SOTALOL PER ORDER. ASSESSED PULSE PRIOR TO ADMINISTRATION. PULSE RATE CURRENTLY 82 WITH REGULAR RATE AND RHYTHM. PROVIDED TEACHING TO PATIENT ABOUT MEDICATION. ENCOURAGED PATIENT TO ASSESS PULSE PRIOR TO TAKING MEDICATION WHEN BACK AT HOME. PATIENT RECEPTIVE TO TEACHINGS. ASKED QUESTIONGS THAT PERTAINED TO TEACHINGS. NO FURTHER QUESTIONS AT THIS TIME. PATIENT DENIES PAIN OR NEED FOR PAIN MEDICINE. SCD'S ON LEFT LEG, NOT TO AFFEECTED EXTREMETY. PATIENT HAS CALL LIGHT AND PHONE CLOSE. PROVIDED WITH ICE WATER. DENIES FURTHER NEEDS AT THIS TIME. CPOC.
[2020-01-22] VITALS: BP 116/43
--- NOTE | 2020-01-22 00:42 | NUR ---
ASSISTED WITH BED FAJARDO. PATIENT DENIES FURTHER NEEDS. ATTEMPTING TO GO BACK TO SLEEP WHEN LEAVING THE ROOM. CPOC
--- NOTE | 2020-01-22 03:45 | NUR ---
I have reviewed this patient and I concur with the Shift Assessment completed by the Licensed Practical Nurse today this shift.
[2020-01-22 04:00] VITALS: BP 130/57
[2020-01-22 06:52] LABS: CALC OSMOLALITY 272 mosm/kg (275-300); CALCIUM 7.8 mg/dL (8.5-10.1); CARBON DIOXIDE 26.3 mmol/L (21.0-32.0); CHLORIDE - SERUM 105 mmol/L (98-107); CREATININE - SERUM 0.6 mg/dL (0.6-1.3); GLUCOSE 106 mg/dL (74-106); POTASSIUM - SERUM 3.1 mmol/L (3.5-5.1); SODIUM 137 mmol/L (136-145); UREA NITROGEN 9 mg/dL (7-18); eGFR NON AFRICAN AMERICAN > 90 mL/min (90-120)
[2020-01-22 06:57] LABS: HEMATOCRIT 30.4 % (36.0-48.0); HEMOGLOBIN 9.8 g/dL (12-16); LYMPHOCYTES 15.6 % (15-50); MCH 30.3 pg (26.0-34.0); MCHC 32.2 g/dL (31.0-37.0); MCV 94.1 fL (80.0-100.0); MEAN PLATELET VOLUME 8.7 fL (7.4-10.4); NEUTROPHILS 67.4 % (40-80); PLATELET COUNT 315 10x3/uL (130-400); RBC 3.23 10x6/uL (4.00-5.40); RDW 12.8 % (11.5-14.5); WBC 5.4 10x3/uL (4.8-10.8)
[2020-01-22 08:00] VITALS: BP 126/59
--- NOTE | 2020-01-22 09:00 | NUR ---
ALERT AND ORIENTED X4. PEDAL PUSES NOTED TO BLE WITH TRACE TO 1+ NOTED TO RLE. DENIES ANY PAIN OR DISCOMFORT. SCD'S NOTED TO LLE WITH LOVENOX THERAPY.TELEMETRY INTACT. MEPILEX INTACT TO HEEL. IV TO LEFT F/A WITH NO S/S OF INFECTION/INFILTRATION. LUNGS CTA. ENCOURAGED TO USE CALL LIGHT FOR ASSSIT.
[2020-01-22 12:00] VITALS: BP 120/47
[2020-01-22 16:00] VITALS: BP 121/62
--- NOTE | 2020-01-22 19:20 | NUR ---
A&O X 4, SUPINE IN BED. REPORTS LIMITED MOVEMENT TO RIGHT LOWER EXTREMETY, BUT COLOR AND WARMTH HAS RETURNED. DENIES PAIN. CONTINUE PLAN OF CARE.
[2020-01-22 20:00] VITALS: BP 109/62
[2020-01-23] VITALS: BP 124/59
--- NOTE | 2020-01-23 00:55 | NUR ---
I have reviewed this patient and I concur with the Shift Assessment completed by the Licensed Practical Nurse today this shift.
[2020-01-23 03:39] VITALS: BP 111/58
[2020-01-23 04:56] LABS: INR 1.22 (0.85-1.17); PROTIME 15.3 SECONDS (11.6-15.0)
[2020-01-23 05:04] LABS: HEMATOCRIT 26.6 % (36.0-48.0); HEMOGLOBIN 8.7 g/dL (12-16); LYMPHOCYTES 28.8 % (15-50); MCH 30.5 pg (26.0-34.0); MCHC 32.7 g/dL (31.0-37.0); MCV 93.3 fL (80.0-100.0); MEAN PLATELET VOLUME 8.2 fL (7.4-10.4); NEUTROPHILS 54.3 % (40-80); PLATELET COUNT 333 10x3/uL (130-400); RBC 2.85 10x6/uL (4.00-5.40); RDW 12.9 % (11.5-14.5); WBC 4.7 10x3/uL (4.8-10.8)
[2020-01-23 05:08] LABS: CALC OSMOLALITY 277 mosm/kg (275-300); CALCIUM 7.7 mg/dL (8.5-10.1); CARBON DIOXIDE 24.8 mmol/L (21.0-32.0); CHLORIDE - SERUM 109 mmol/L (98-107); CREATININE - SERUM 0.6 mg/dL (0.6-1.3); GLUCOSE 101 mg/dL (74-106); MAGNESIUM - SERUM 2.2 mg/dL (1.8-2.4); SODIUM 140 mmol/L (136-145); UREA NITROGEN 10 mg/dL (7-18); eGFR NON AFRICAN AMERICAN > 90 mL/min (90-120)
[2020-01-23 05:10] LABS: POTASSIUM - SERUM 3.6 mmol/L (3.5-5.1)
[2020-01-23] MEDS ORDERED: NORVASC2.5 MG (06:53)
--- NOTE | 2020-01-23 07:20 | NUR ---
RECIEVE REPORT. RESTING IN BED WITH EYES CLOSED. SINUS RYTHM WITH 1st DEGREE BLOCK 72 ON TELEMETRY. NO SIGNS OF DISTRESS. CONTINUE PLAN OF CARE AND SAFETY PRECAUTIONS.
[2020-01-23 08:10] VITALS: BP 115/55
[2020-01-23 09:33] LABS: % SATURATION 15 % (15-55); IRON 19 ug/dl (35-150); TOTAL IRON BIND CAPACITY 120 ug/dl (260-445); UNSAT IRON BIND CAPACITY 101 ug/dl (150-375)
[2020-01-23 11:54] VITALS: BP 145/57
--- NOTE | 2020-01-23 12:00 | NUR ---
ALERT AND ORIENTED X4. SITTING UP IN CHAIR. REQUESTING TO BE DISCHARGED. NOTIFY KORI STEVENSON.
--- NOTE | 2020-01-23 12:24 | NUR ---
INCISION TO RIGHT HIP CLEAN, DRY AND INTACT. STERISTRIPS IN PLACE. SPORATIC BRUISING NOTED TO ARMS AND LEGS. NO COMPLAINTS. WOUND CARE WILL CONTINUE MONITORING.
--- NOTE | 2020-01-23 13:01 | NUR ---
FAMILY CALLING ABOUT DISCHARGE. EXPLAIN TO FAMILY AND PATIENT DUE TO DVT OF RIGHT LOWER EXTREMITY THE INR NEEDS TO BE 2-3 AND IT IS CURRENTLY AT 1.22. PATIENT BEGINS REQUESTING OTHER NURSES IN ROOM. KORI STEVENSON EXPLAINS WHY UNABLE TO DISCHARGE TODAY.
[2020-01-23] MEDS ORDERED: LOVENOX60 MG/0.6 SC (13:32)
[2020-01-23] MEDS ORDERED: COUMADIN5 MG PO (13:32)
--- NOTE | 2020-01-23 13:50 | NUR ---
Nutrition follow-up: Diet: AHA PO intake 50-75% at meals Labs reviewed +BM PO intake fair to good at meals RDN following.
--- NOTE | 2020-01-23 15:02 | MORECARE ---
CASE MANAGEMENT DISCHARGE SUMMARY PATIENT: SULEMA CONRAD UNIT: [id number] ADM DATE: 01/19/20 AGE: 84 : 35 SEX: F ROOM/BED: D.2210 AUTHOR: DUNCAN SAHNI PHYSICIAN: REFERRING PHYSICIAN: JOHNNY CONDON MD DATE OF SERVICE: 01/23/20 Discharge Plan Patient Name: SULEMA CONRAD Facility: [facility]:[place] : 1935 Planned Disposition: Home with Home Health Anticipated Discharge Date: Discharge Date: Expected LOS: Initial Reviewer: [email or web address] Initial Review Date: 01/18/2020 Generated: 01/23/20 4:02 pm Patient Name: SULEMA CONRAD Page [phone] at 1502 All edits/amendments must be made on the electronic document DICTATION DATE: 01/23/201501 DIESEL POWERPLANT SUPERVISOR: MICK 01/23/20 1502 RPT#: [id number] DC DATE: STATUS: ADM IN [facility] [address] [place] [address] END OF REPORT
--- NOTE | 2020-01-23 15:09 | MORECARE ---
CASE MANAGEMENT DISCHARGE SUMMARY PATIENT: SULEMA CONRAD UNIT: [id number] ADM DATE: 01/19/20 AGE: 84 : 35 SEX: F ROOM/BED: D.2210 AUTHOR: DUNCAN SAHNI PHYSICIAN: REFERRING PHYSICIAN: JOHNNY CONDON MD DATE OF SERVICE: 01/23/20 Discharge Plan Patient Name: SULEMA CONRAD [facility] [facility] 1935 Planned Disposition: Home with Home Health Anticipated Discharge Date: Discharge Date: Expected LOS: Initial Reviewer: [email or web address] Initial Review Date: 01/18/2020 Generated: 01/23/20 4:08 pm DCPIA - Discharge Planning Initial Assessment Updated by [email or web address]: Maryse Leblanc on 01/23/20 3:02 pm * Is the patient Alert and Oriented? Yes * How many steps to enter\exit or inside your home? * PCP [facility] * [facility] * Preadmission Environment Home with Family * ADLs Independent * Equipment Bedside Commode Rolling Walker Shower Chair Walker Wheelchair * List name and contact numbers for known caregivers / representatives who currently or will assist patient after discharge: MISBAH CONRAD [phone] * Verbal permission to speak to the caregivers and representatives has been obtained from the patient. N/A * Community resources currently utilized Home Health * Please name any agencies selected above. [facility] * Additional services required to return to the preadmission environment? Yes * Can the patient safely return to the preadmission environment? Yes * Has this patient been hospitalized within the prior 30 days at any hospital? Yes Last DP export: 01/23/20 2:02 p Patient Name: SULEMA CONRAD Page 11377 at 1509 All edits/amendments must be made on the electronic document DICTATION DATE: 01/23/201507 PIERCING MACHINE OPERATOR: MICK 01/23/201507 RPT#: [id number] DC DATE: STATUS: ADM IN [facility] [address] [place] [address] END OF REPORT
--- NOTE | 2020-01-23 15:16 | MORECARE ---
CASE MANAGEMENT DISCHARGE SUMMARY PATIENT: SULEMA CONRAD UNIT: [id number] ADM DATE: 01/19/20 AGE: 84 : 35 SEX: F ROOM/BED: D.2210 AUTHOR: KAITLYN,DOC PHYSICIAN: REFERRING PHYSICIAN: JOHNNY CONDON MD DATE OF SERVICE: 01/23/20 Discharge Plan Patient Name: SULEMA CONRAD Facility: [facility]:[place] : 1935 Planned Disposition: Home with Home Health Anticipated Discharge Date: Discharge Date: Expected LOS: Initial Reviewer: [id number] Initial Review Date: 01/18/2020 Generated: 01/23/20 4:16 pm Comments DCP- Discharge Planning Updated by [email or web address]: Maryse Leblanc on 01/23/20 2:[address] Patient Name: SULEMA CONRAD Admission Status: ER Accout number: [id number] Admission Date: 01-19-2020 : 1935 Admission Diagnosis: Attending: JOHNNY CONDON Current LOS: 4 Anticipated DC Date: Planned Disposition: Home with Home Health Primary Insurance: MEDICARE A & B Discharge Planning Comments: CM met with patient to complete initial dc planning assessment. CM educated patient on the CM role and verbal consent given by patient to complete assessment. Patient lives at home alone where she states she is independent with her care. At discharge patient plans to return home and feels this is a safe discharge. CM discussed availability of home health, rehab services, and medical equipment. Prior to last discharge she was set up with [facility], but they never admitted her because she was back in the hospital. I have contacted Petey with [facility] to let him know that she will be discharged today. I have called [facility] [address] to see what the cost will be for her lovenox injections. I spoke with Violette and she stated that it would cost her $3.60. They will order them today and they receive their shipments tomorrow around 10:30 am. I have explained this to the patient and she states understanding. Patient has a walker, wheelchair, BSC, and shower chair. Her daughter in law will be her meals on wheels driver home. IMM served and explained and CHARITO with [facility]. Patient denied known discharge needs at this time. CM will continue to follow and will assist as needed with dc plans/needs. Dry Color Tester: Maryse Leblanc DCPIA - Discharge Planning Initial Assessment Updated by [email or web address]: Maryse Leblanc on 01/23/20 3:02 pm * Is the patient Alert and Oriented? Yes * How many steps to enter\exit or inside your home? * PCP [place] * [facility] * Preadmission Environment Home with Family * ADLs Independent * Equipment Bedside Commode Rolling Walker Shower Chair Walker Wheelchair * List name and contact numbers for known caregivers / representatives who currently or will assist patient after discharge: MISBAH HOUSTON [phone] * Verbal permission to speak to the caregivers and representatives has been obtained from the patient. N/A * Community resources currently utilized Home Health * Please name any agencies selected above. [facility] * Additional services required to return to the preadmission environment? Yes * Can the patient safely return to the preadmission environment? Yes * Has this patient been hospitalized within the prior 30 days at any hospital? Yes Coverage Notice Reviewer: [id number] - Maryse Leblanc Notice Issued Date-Time: 01/23/2020 14:30 Notice Type: IM Discharge Notice Notice Delivered To: Patient Relationship to Patient: Laboratory Apparatus Glass Blower Name: Delivery Method: HAND - Hand Delivered Charisma Days: Prior Verbal Notification: Recipient Understood Notice: Yes Recipient Signature: Yes Med Rec Note Co-signed by Attending: Coverage Notice Comment: Reviewer: [id number] Tiana Leblanc Notice Issued Date-Time: 01/23/2020 14:30 Notice Type: Patient Choice Letter Notice Delivered To: Patient Relationship to Patient: Laboratory Apparatus Glass Blower Name: Delivery Method: HAND - Hand Delivered Charisma Days: Prior Verbal Notification: Recipient Understood Notice: Yes Recipient Signature: Yes Med Rec Note Co-signed by Attending: Coverage Notice Comment: [facility] Last DP export: 01/23/20 2:09 p Patient Name: SULEMA CONRAD Page [id number] at 1516 All edits/amendments must be made on the electronic document DICTATION DATE: 01/23/201515 FIRE OFFICIAL: MICK 01/23/20 1516 RPT#: [id number] DC DATE: STATUS: ADM IN [facility] [address] [place] [address] END OF REPORT
--- NOTE | 2020-01-23 15:24 | MORECARE ---
CASE MANAGEMENT DISCHARGE SUMMARY PATIENT: SULEMA CONRAD UNIT: [id number] ADM DATE: 01/19/20 AGE: 84 : 35 SEX: F ROOM/BED: D.2210 AUTHOR: KAITLYN,DOC PHYSICIAN: REFERRING PHYSICIAN: JOHNNY CONDON MD DATE OF SERVICE: 01/23/20 Discharge Plan Patient Name: SULEMA CONRAD Facility: [facility]:[place] : 1935 Planned Disposition: Home with Home Health Anticipated Discharge Date: Discharge Date: Expected LOS: Initial Reviewer: [email or web address] Initial Review Date: 01/18/2020 Generated: 01/23/20 4:24 pm Comments DCP- Discharge Planning Updated by [email or web address]: Maryse Leblanc on 01/23/20 2:[address] Patient Name: SULEMA CONRAD Admission Status: ER Accout number: [id number] Admission Date: 01-19-2020 : 1935 Admission Diagnosis: Attending: JOHNNY CONDON Current LOS: 4 Anticipated DC Date: Planned Disposition: Home with Home Health Primary Insurance: MEDICARE A & B Discharge Planning Comments: CM met with patient to complete initial dc planning assessment. CM educated patient on the CM role and verbal consent given by patient to complete assessment. Patient lives at home alone where she states she is independent with her care. At discharge patient plans to return home and feels this is a safe discharge. CM discussed availability of home health, rehab services, and medical equipment. Prior to last discharge she was set up with [facility], but they never admitted her because she was back in the hospital. I have contacted Petey with [facility] to let him know that she will be discharged today. I have called [facility] [address] to see what the cost will be for her lovenox injections. I spoke with Violette and she stated that it would cost her $3.60. They will order them today and they receive their shipments tomorrow around 10:30 am. I have explained this to the patient and she states understanding. Patient has a walker, wheelchair, BSC, and shower chair. Her daughter in law will be her chassis driver home. IMM served and explained and CHARITO with [facility]. Patient denied known discharge needs at this time. CM will continue to follow and will assist as needed with dc plans/needs. Crown Wheel Assembler: Maryse Leblanc DCPIA - Discharge Planning Initial Assessment Updated by [email or web address]: Maryse Leblanc on 01/23/20 3:02 pm * Is the patient Alert and Oriented? Yes * How many steps to enter\exit or inside your home? * PCP [place] * [facility] * Preadmission Environment Home with Family * ADLs Independent * Equipment Bedside Commode Rolling Walker Shower Chair Walker Wheelchair * List name and contact numbers for known caregivers / representatives who currently or will assist patient after discharge: MISBAH CONRAD [phone] * Verbal permission to speak to the caregivers and representatives has been obtained from the patient. N/A * Community resources currently utilized Home Health * Please name any agencies selected above. [facility] * Additional services required to return to the preadmission environment? Yes * Can the patient safely return to the preadmission environment? Yes * Has this patient been hospitalized within the prior 30 days at any hospital? Yes External Providers External Provider: [facility] Next Contact Date: Service Request Date: Service Type: Resolution: Reviewer: Comments: Coverage Notice Reviewer: [id number] Tiana Leblanc Notice Issued Date-Time: 01/23/2020 14:30 Notice Type: IM Discharge Notice Notice Delivered To: Patient Relationship to Patient: Monument Letterer Name: Delivery Method: HAND - Hand Delivered Charisma Days: Prior Verbal Notification: Recipient Understood Notice: Yes Recipient Signature: Yes Med Rec Note Co-signed by Attending: Coverage Notice Comment: Reviewer: [id number] - Maryse Leblanc Notice Issued Date-Time: 01/23/2020 14:30 Notice Type: Patient Choice Letter Notice Delivered To: Patient Relationship to Patient: Monument Letterer Name: Delivery Method: HAND - Hand Delivered Charisma Days: Prior Verbal Notification: Recipient Understood Notice: Yes Recipient Signature: Yes Med Rec Note Co-signed by Attending: Coverage Notice Comment: [facility] Last DP export: 01/23/20 2:16 p Patient Name: SULEMA CONRAD Page [id number] at 1524 All edits/amendments must be made on the electronic document DICTATION DATE: 01/23/201523 SNOWMAKER: DM 01/23/201523 RPT#: [id number] DC DATE: STATUS: ADM IN [facility] [address] [place] [address] END OF REPORT
--- NOTE | 2020-01-23 17:03 | NUR ---
ALERT AND ORIENTED X4. SITTING UP IN CHAIR. DC LT FA IV TIP INTACT. DISCHARGE INSTRUCTIONS GIVEN VERBALLY AND WRITTEN. DISCHARGE PAPERS SIGNED ON CHART. WAITING FOR RIDE TO ARRIVE. CONTINUE PLAN OF CARE AND SAFETY PRECAUTIONS.
--- NOTE | 2020-01-23 17:52 | NUR ---
RIDE ARRIVES. ESCORT TO RIDE VIA WHEELCHAIR. REMAINS FREE FROM INJURY.
--- NOTE | 2020-01-24 08:18 | MORECARE ---
CASE MANAGEMENT DISCHARGE SUMMARY PATIENT: SULEMA CONRAD UNIT: [id number] ADM DATE: 01/19/20 AGE: 84 : 35 SEX: F ROOM/BED: D.2210 AUTHOR: KAITLYN,DOC PHYSICIAN: REFERRING PHYSICIAN: JOHNNY CONDON MD DATE OF SERVICE: 01/24/20 Discharge Plan Patient Name: SULEMA CONRAD Facility: [facility]:[place] : 1935 Planned Disposition: Home with Home Health Anticipated Discharge Date: Discharge Date: 01/23/2020 Expected LOS: 0 Initial Reviewer: [email or web address] Initial Review Date: 01/18/2020 Generated: 01/24/20 9:18 am Comments DCP- Discharge Planning Updated by [id number]: Maryse Leblanc on 01/23/20 2:[address] Patient Name: SULEMA CONRAD Admission Status: ER Accout number: [id number] Admission Date: 01-19-2020 : 1935 Admission Diagnosis: Attending: JOHNNY CONDON Current LOS: 4 Anticipated DC Date: Planned Disposition: Home with Home Health Primary Insurance: MEDICARE A & B Discharge Planning Comments: CM met with patient to complete initial dc planning assessment. CM educated patient on the CM role and verbal consent given by patient to complete assessment. Patient lives at home alone where she states she is independent with her care. At discharge patient plans to return home and feels this is a safe discharge. CM discussed availability of home health, rehab services, and medical equipment. Prior to last discharge she was set up with [facility], but they never admitted her because she was back in the hospital. I have contacted Petey with [facility] to let him know that she will be discharged today. I have called [facility] [address] to see what the cost will be for her lovenox injections. I spoke with Violette and she stated that it would cost her $3.60. They will order them today and they receive their shipments tomorrow around 10:30 am. I have explained this to the patient and she states understanding. Patient has a walker, wheelchair, BSC, and shower chair. Her daughter in law will be her water taxi driver home. IMM served and explained and CHARITO with [facility]. Patient denied known discharge needs at this time. CM will continue to follow and will assist as needed with dc plans/needs. Med Spec: Maryse Leblanc DCPIA - Discharge Planning Initial Assessment Updated by [email or web address]: Maryse Leblanc on 01/23/20 3:02 pm * Is the patient Alert and Oriented? Yes * How many steps to enter\exit or inside your home? * PCP [place] * [facility] * Preadmission Environment Home with Family * ADLs Independent * Equipment Bedside Commode Rolling Walker Shower Chair Walker Wheelchair * List name and contact numbers for known caregivers / representatives who currently or will assist patient after discharge: MISBAH CONRAD [phone] * Verbal permission to speak to the caregivers and representatives has been obtained from the patient. N/A * Community resources currently utilized Home Health * Please name any agencies selected above. [facility] * Additional services required to return to the preadmission environment? Yes * Can the patient safely return to the preadmission environment? Yes * Has this patient been hospitalized within the prior 30 days at any hospital? Yes Coverage Notice Reviewer: [id number] - Maryse Leblanc Notice Issued Date-Time: 01/23/2020 14:30 Notice Type: IM Discharge Notice Notice Delivered To: Patient Relationship to Patient: Cardiopulmonary Technician Name: Delivery Method: HAND - Hand Delivered Charisma Days: Prior Verbal Notification: Recipient Understood Notice: Yes Recipient Signature: Yes Med Rec Note Co-signed by Attending: Coverage Notice Comment: Reviewer: [id number] Tiana Leblanc Notice Issued Date-Time: 01/23/2020 14:30 Notice Type: Patient Choice Letter Notice Delivered To: Patient Relationship to Patient: Cardiopulmonary Technician Name: Delivery Method: HAND - Hand Delivered Charisma Days: Prior Verbal Notification: Recipient Understood Notice: Yes Recipient Signature: Yes Med Rec Note Co-signed by Attending: Coverage Notice Comment: [facility] Last DP export: 01/23/20 2:24 p Patient Name: SULEMA CONRAD Page [id number] at 0818 All edits/amendments must be made on the electronic document DICTATION DATE: 01/24/20817 MANUFACTURING LABORER: MICK 01/24/20817 RPT#: [id number] DC DATE:01/23/20 STATUS: DIS IN [facility] [address] [place] [address] END OF REPORT
[2020-01-24 11:09] LABS: LUPUS - INTERPRETATION Comment: (()); LUPUS - THROMBIN TIME 14.8 sec (0.0-23.0); LUPUS - dRVVT 32.8 sec (0.0-47.0); PTT-LA 45.8 sec (0.0-51.9)
== END 2020-01-23 17:53 | disposition home health service (06) | DRG 300 ==
LOC: D.ER 15:49 → OBSVTIME 18:27 → D.MS 18:27
PROVIDERS: Family Medicine; Internal Medicine Hematology & Oncology; ADMIT Internal Medicine Nephrology; ATTEND Internal Medicine Nephrology
DX: I82.431 Acute embolism and thrombosis of right popliteal vein (principal); I50.32 Chronic diastolic (congestive) heart failure; E87.1 Hypo-osmolality and hyponatremia; I82.411 Acute embolism and thrombosis of right femoral vein; I11.0 Hypertensive heart disease with heart failure; D64.9 Anemia, unspecified; E03.9 Hypothyroidism, unspecified